=== PATIENT | male | born 1970 | race Caucasian/White ===

== ENCOUNTER 2024-02-20 11:48 | Inpatient (IN) | payer OTHER, SELFPAY ==
[2024-02-20] VITALS (22 sets, daily range): BP systolic 104–150; BP diastolic 67–88; PULSE 59–77; RESP 12–26; TEMP 36.6–36.9; O2SAT 93–100
--- NOTE | 2024-02-20 | ECHO_ITS ---
Patient Info Name: Miguel Cuadra Age: 53 years : 1970 Gender: Male Ht: 63 in Wt: 148 lbs BSA: 1.74 m2 HR: 77 bpm BP: 150 / 88 mmHg Heart Rhythm: Sinus Rhythm Technical Quality: Good Exam Date: 02/20/2024 1:45 PM Exam Location: Echo Lab Patient Status: Inpatient Admit Date: 02/20/2024 Staff Ordering Physician: Walter Baker MD (rafa/cecelia) Sap Bw Bi Developer: Sparkle Caceres RDCS Attending Provider: Walter Baker MD (rafa/cecelia) Referring Physician: Samuel FORREST; Exam Type: CA echo doppler color flow Study Info Complete two-dimensional, color flow and Doppler transthoracic echocardiogram is performed. Summary 1. Complete two-dimensional, color flow and Doppler transthoracic echocardiogram is performed. 2. Left ventricular chamber dimension is mildly enlarged. 3. Left ventricular systolic function is normal, estimated at 65-70%. 4. There is mildly increased left ventricular wall thickness. 5. The left ventricular diastolic function is grade I diastolic dysfunction. 6. The basal anterolateral wall, mid anterolateral wall, basal inferolateral wall, and mid inferolateral wall are hypokinetic. 7. There is mild mitral valve regurgitation. 8. There is mild tricuspid valve regurgitation. Left Ventricle Left ventricular chamber dimension is mildly enlarged. Left ventricular systolic function is normal, estimated at 65-70%. There is mildly increased left ventricular wall thickness. The left ventricular diastolic function is grade I diastolic dysfunction. The basal anterolateral wall, mid anterolateral wall, basal inferolateral wall, and mid inferolateral wall are hypokinetic. Right Ventricle Right ventricular chamber dimension is normal. Right ventricular systolic function is normal. Left Atria Left atrial chamber dimension is normal. Right Atria Right atrial chamber dimension is normal. Atrial Septum Intact interatrial septum visualized by color flow imaging. Aortic Valve The aortic valve is trileaflet. There is mild aortic valve sclerosis. There is no aortic valve stenosis. There is trace aortic valve regurgitation. Pulmonic Valve The pulmonic valve is normal. There is no pulmonic valve stenosis. There is trace pulmonic regurgitation. Mitral Valve The mitral valve has normal leaflets. There is no mitral valve stenosis. There is mild mitral valve regurgitation. Tricuspid Valve The tricuspid valve leaflets are normal. There is no significant tricuspid valve stenosis. There is mild tricuspid valve regurgitation. Pericardium/Pleural The pericardium appears normal. There is no pericardial effusion. Inferior Vena Cava Normal inferior vena cava with >50% collapse upon inspiration consistent with normal right atrial pressure, 5 mmHg. Aorta The aortic root size at the sinus of Valsalva is normal. Left Ventricular Outflow Tract Name Value Normal LVOT 2D LVOT Diameter 2.3 cm LVOT Doppler LVOT Peak Gradient 3 mmHg LVOT Mean Gradient 1 mmHg LVOT VTI 19 cm LVOT VTI/AV VTI Ratio 0.7 LVOT Stroke Volume 79 ml LVOT CO 4.5 l/min LVOT CI 2.6 l/min/m2 Pulmonic Valve Name Value Normal PV Doppler PV Peak Gradient 2 mmHg Mitral Valve Name Value Normal MV Doppler MV Peak Gradient 2 mmHg MV Mean Gradient [address] [place] 225 cm/s2 MV PHT 79 ms MV Area (PHT) 2.8 cm2 4.0-5.0 MV Area (Cont Eq VTI) 3.9 cm2 MV Regurgitation Doppler MR Peak Gradient 75 mmHg MV Diastolic Function MV E Peak Velocity 61 cm/s MV A Peak Velocity 90 cm/s MV E/A 0.7 MV Decel Time 273 ms MV Annular TDI MV E/e' (Septal) 6.1 <=8.0 MV E/e' (Lateral) 5.0 <=8.0 MV E/e' (Average) 5.6 Tricuspid Valve Name Value Normal TV Regurgitation Doppler TR Peak Velocity 360 cm/s TR Peak Gradient 52 mmHg Estimated PAP/RSVP RA Pressure 5 mmHg <=5 PA Systolic Pressure 57 mmHg <36 RV Systolic Pressure 57 mmHg <36 Aortic Valve Name Value Normal AV Doppler AV Peak Velocity 114 cm/s AV Peak Gradient 5 mmHg AV Mean Gradient 3 mmHg AV VTI 26 cm AV Area (Cont Eq VTI) 3.1 cm2 >=3.0 AV Area (Cont Eq Daryl) 2.9 cm2 AV Regurgitation 2D LVOT Area 4.2 cm2 Ventricles Name Value Normal LV Dimensions 2D/MM IVS Diastolic Thickness (2D) 0.7 cm 0.6-1.0 LVID Diastole (2D) 4.7 cm 4.2-5.8 LVIW Diastolic Thickness (2D) 0.8 cm 0.6-1.0 LVID Systole (2D) 3.2 cm 2.5-4.0 LVOT Diameter 2.3 cm LV Mass (2D Cubed) 120.71 g 88.00-224.00 LV Mass Index (2D Cubed) 69 g/m2 49-115 Relative Wall Thickness (2D) 0.35 LV Fractional Shortening/Ejection Fraction 2D/MM LV Fractional Shortening (2D) 29 % 25-43 LV EF (2D Teicholz) 56 % 52-72 LV Diastolic Volume (4C MOD) 110 ml LV EF (4C MOD) 61 % LV Diastolic Length (4C) 9.0 cm LV Systolic Length (4C) 7.3 cm LV Stroke Volume (4C MOD) 67 ml Atria Name Value Normal LA Dimensions LA Volume (4C A-L) 61 ml RA Dimensions RA Area (4C) 15.3 cm2 <=18.0 Wall Motion Scoring Report Signatures
--- NOTE | 2024-02-20 11:50 | ECG_ITS ---
Test Date: 2024-02-20 11:46:18 Measurements Intervals [place] Rate: 52 P: 37 VT: 119 QRS: 82 QRSD: 98 T: 81 QT: 441 QTc: 414 Interpretive Statements SINUS BRADYCARDIA WITH SHORT VT INTERVAL INCOMPLETE RIGHT BUNDLE BRANCH BLOCK [90+ ms QRS DURATION, TERMINAL R IN V1/V2, 40+ ms S IN I/aVL/V4/V5/V6] INFERIOR ST ELEVATION CONSISTENT WITH ACUTE INJURY PATTERN WITH POSTERIOR EXTENSION CRITICAL ECG No previous ECG available for comparison Electronically Signed On 02-21-2024 10:32:31 RADIOTELEGRAPH OPERATOR by Clifford Britt M.D.
[2024-02-20] MEDS: TICAGRELOR 90 MG TABLET 180 MG PO (11:58)
[2024-02-20] MEDS: HEPARIN SODIUM 5,000 UNITS/ML VIAL 4000 UNITS IV PUSH (12:01)
--- NOTE | 2024-02-20 12:05 | PC.NURSE ---
Stemi 1148-O/H 1149-Dr Baker 1150-Chey 1151-[facility]
--- NOTE | 2024-02-20 12:08 | ED.CHESTPAIN ---
HPI - Chest Pain General Chief Complaint: Chest Pain Stated Complaint: cp Time Seen by Provider: 02/20/24 11:54 History of Present Illness HPI narrative: Patient is a 53-year-old male who presents ER with chest pain. Began this morning. Left-sided. Reports his arms feel heavy. He was having pain in his right arm that is gone away but now he is having more left-sided pain. Pain worsened at work. EKG on arrival shows inferior STEMI. Related Data Home Medications ?Medication ?Instructions ?Recorded ?Confirmed ?Last Taken ?Type aspirin 325 mg capsule 325 mg PO DAILY 02/20/24 02/20/24 02/20/24 History chlordiazepoxide HCl 10 mg capsule 10 mg PO DAILY PRN anxiety 02/20/24 02/20/24 02/20/24 History lisinopril 20 mg tablet 20 mg PO DAILY 02/20/24 02/20/24 02/20/24 History Allergies Allergy/AdvReac Type Severity Reaction Status Date / Time Sulfa (Sulfonamide Allergy Mild Rash Verified 02/20/24 13:29 Antibiotics) Review of Systems Constitutional: Constitutional: Reports no additional constitutional complaints Cardiovascular: Cardiovascular: Reports no additional cardiovascular complaints Respiratory: Respiratory: Reports no additional respiratory complaints Gastrointestinal: Gastrointestinal: Reports no additional gastrointestinal complaints [facility] Past Medical History Medical History (Updated 02/20/24 @ 20:06 by Jaime Aguilar MD) Anxiety Tobacco dependence Hypertension Family History Family History (Updated 02/20/24 @ 14:14 by Deb Orellana RN) Father COPD (chronic obstructive pulmonary disease) Heart attack Mother Heart attack Social History Social History (Updated 02/20/24 @ 13:[address] MD) Social History: Drinks 1-2 drinks every day. Daily smoker Smoking packs per day: 1 Smoking cigarettes per day: 20.0 Years smoked: 40 Smoking pack-years: 40.00 Smoking status: Current every day smoker Smoking end date: 02/20/24 Alcohol intake: current Drinks per week: 7 Substance use: never Substance use type: does not use Do You Feel Safe in your Home?: Yes Lack of Transportation: No Lack of Food: Never True Current Housing: I Have Housing Concerned About Future Housing: No Difficulty Paying Gas/Electric Bills: No Difficulty Paying for Meds: No Currently Unemployed: No Education: Trade/Vocational Certificate Difficulty w/ Childcare or Family Care: No Spiritual care concerns: No Exam Narrative: GENERAL: Well-appearing, well-nourished, and in no acute distress. HEAD: Normocephalic, atraumatic. ENT: Mucous membranes moist. CHEST: Clear to auscultation. No respiratory distress. HEART: Regular rate and rhythm. Normal peripheral pulses. ABDOMEN: Soft, nontender, nondistended. EXTREMITIES: Normal range of motion. No edema. SKIN: Warm, dry, no rash. NEURO: Alert and oriented x3. PSYCH: Normal mood and affect. Course Course Emergency Course: STEMI activated, Cath team rapidly at bedside with plastic battery assembler. Patient received oral Brilinta, he had already taken aspirin at home. Heparin bolus given as well. Vital Signs Vital signs: Vital Signs Temperature 98 F 02/20/24 11:50 Pulse Rate 77 02/20/24 11:50 Respiratory Rate 16 02/20/24 11:50 Blood Pressure 150/88 H 02/20/24 11:50 Pulse Oximetry 100 02/20/24 11:50 Oxygen Delivery Room Air 02/20/24 11:50 Temperature 98.4 F 02/20/24 18:00 Pulse Rate 66 02/20/24 18:31 Respiratory Rate 18 02/20/24 18:31 Blood Pressure 106/71 02/20/24 18:31 Pulse Oximetry 93 02/20/24 18:31 Oxygen Delivery Room Air 02/20/24 12:00 MDM - Chest Pain Lab Data 02/20/24 12:03 02/20/24 12:03 ECG Data EKG #1: ECG completion date: 02/20/24 ECG completion time: 11:46 EKG Interpretation: bradycardia (52), sinus rhythm, ST elevation (II/III/aVF), normal QRS and normal QT Discharge Plan Discharge Clinical Impression: STEMI (ST elevation myocardial infarction) Patient Disposition: Still a Patient Condition: Stable
--- NOTE | 2024-02-20 12:09 | WPDMODSED ---
Moderate Sedation Note-Pt Data Patient Data Diagnosis: STEMI Present Complaint: STEMI Procedure to be performed/Plan: Primary PCI Allergies Allergy/AdvReac Type Severity Reaction Status Date / Time No Known Allergies Allergy Verified 02/20/24 11:57 Current Medications: Active Medications Heparin Sodium (Porcine) (Heparin Sodium 5,000 Units/Ml Vial) 4,000 units 60 units/kg (4000 units) IV PUSH ONCE ONE Stop: 02/20/24 12:01 Last Admin: 02/20/24 12:01 Dose: 4,000 units Ticagrelor (Ticagrelor 90 Mg Tablet) 180 mg PO ONCE ONE Stop: 02/20/24 11:55 Last Admin: 02/20/24 11:58 Dose: 180 mg Sedation/Anesthesia: No previous sedation/anesthesia problems (including family history). Mod Sed Physical Exam Physical Exam Pre Procedural Exam: Normal: Lungs, Heart Rate, Heart Rhythm, Neuro Exam, Extremities and Skin and Variation: Appearance (In no acute distress) Hours since solid foods: 0 Hours since liquid intake: 0 Mallampati Classification: class III Internal Medicine - PN: Obj Da Vital Signs Vital Signs: Vital Signs - 24 hr 02/20/24 11:50 02/20/24 12:00 Temperature 36.6 C Pulse Rate 77 Respiratory Rate 16 Blood Pressure 150/88 H Pulse Oximetry 100 100 Oxygen Delivery Room Air Room Air Meds/Results Medications: Active Medications Generic Name Dose Route Start Last Admin Trade Name Freq PRN Reason Stop Dose Admin Heparin Sodium (Porcine) 4,000 units 02/20/24 12:00 02/20/24 12:01 Heparin Sodium 5,000 Units/Ml Vial 60 units/kg (4000 units) 02/20/24 12:01 4,000 units IV PUSH Administration ONCE ONE Ticagrelor 180 mg 02/20/24 11:54 02/20/24 11:58 Ticagrelor 90 Mg Tablet PO 02/20/24 11:55 180 mg ONCE ONE Administration Labs 02/20/24 12:03 02/20/24 12:03 ASA Classification/Sedation ASA Classification/Sedation ASA Class: IV Emergent: Yes Risks: Risks, benefits and alternatives explained and patient/family accepted plan for sedation. Patient re-evaluated immediately prior to sedation.
[2024-02-20 12:10] LABS: Basophils Absolute Auto 0.1 K/mm3 (0.0-0.1); Basophils Percent Auto 0.5 % (0.2-1.2); Eosinophils Absolute Auto 0.1 K/mm3 (0-0.3); Eosinophils Percent Auto 0.7 % (0-4.4); Hematocrit 43.1 % (42.0-52.0); Hemoglobin 15.2 g/dL (14.0-18.0); Immature Granulocyte Absolute 0.04 K/mm3 (0.00-0.031); Immature Granulocyte Percent A 0.4 % (0-0.5); Lymphocytes Absolute Auto 1.26 K/mm3 (0.9-3.2); Lymphocytes Percent Auto 12.8 % (18.3-44.2); Mean Corpuscular HGB Conc 35.3 g/dl (32-36); Mean Corpuscular Hemoglobin 33.9 pg (26-34); Mean Corpuscular Volume 96.2 fl (80-100); Mean Platelet Volume 9.1 fl (7.4-10.4); Monocytes Absolute Auto 0.8 K/mm3 (0.1-0.6); Monocytes Percent Auto 8.2 % (2.6-8.5); Neutrophils Absolute Auto 7.6 K/mm3 (1.3-6.7); Neutrophils Percent Auto 77.4 % (45.5-73.1); Platelet Count Result 312 k/mm3 (150-375); Red Blood Count 4.48 M/mm3 (4.6-6.20); Red Cell Distribution Width 11.5 % (11.5-14.5); White Blood Count 9.9 K/mm3 (4.5-10.0)
--- NOTE | 2024-02-20 12:10 | PM.IMHP ---
H&P: HPI History of Present Illness Date/Time: 02/20/24 12:10 Chief Complaint: Chest pain Narrative: Miguel is a 53 year old male with hypertension and tobacco dependence who presented via EMS with chest pain. EKG shows ST elevations in the inferior leads with reciprocal ST depressions. STEMI team activated. Chest pain began around 8-8:30 AM. + Smoker. Smoking since age 12. Currently smoking <1/2 PPD, was smoking max 1-1.5PPD. Hemodynamically stable in the ED. Review of Systems Review of Systems: All systems reviewed & are unremarkable except as noted in HPI and below (HPI) [facility] Past Medical History Medical History (Updated 02/20/24 @ 13:[address] MD) Tobacco dependence Hypertension Meds Home Medications and Allergies Home Medications ?Medication ?Instructions ?Recorded ?Confirmed ?Type chlordiazepoxide HCl 10 mg capsule 10 mg PO DAILY PRN anxiety 02/20/24 02/20/24 History lisinopril 20 mg tablet 20 mg PO DAILY 02/20/24 02/20/24 History Allergies Allergy/AdvReac Type Severity Reaction Status Date / Time Sulfa (Sulfonamide Allergy Mild Rash Verified 02/20/24 13:29 Antibiotics) Vital Signs Vital Signs - 24 hr 02/20/24 11:50 02/20/24 12:00 Temperature 36.6 C Pulse Rate 77 Respiratory Rate 16 Blood Pressure 150/88 H Pulse Oximetry 100 100 Oxygen Delivery Room Air Room Air Exam Const: General: uncomfortable Eyes: General: appearance normal, both eyes and all related structures Sclera: sclerae normal Resp: Effort & Inspection: normal respiratory effort Cardio: Rate: regular rate Rhythm: regular rhythm Skin: General skin exam: normal color Neuro: Speech: normal speech Psych: Mental Status: mental status grossly normal Affect: normal affect Assessment and Plan Assessment and plan (1) STEMI (ST elevation myocardial infarction): Code(s): I21.3 - ST elevation (STEMI) myocardial infarction of unspecified site Status: Acute Assessment and Plan: Cardiac catheterization shows: 1. Acute 100% thrombotic occlusion of the mid LCX. S/p successful PCI with RAJESH x 1 in the mid-distal LCX. 2. The proximal to mid LAD has moderate disease. The first diagonal branch has ostial-proximal 90% stenosis. 3. OM1 has a 70-80% stenosis in the mid portion. 4. Elevated left ventricular end-diastolic pressure of 27mmHg. Continue ASA 81mg once daily indefinitely. Continue Brilinta 90mg BID for at least 1 year. Start high intensity statin. Echocardiogram ordered. 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 (2) Hypertension: Code(s): I10 - Essential (primary) hypertension Status: Acute Assessment and Plan: Takes Lisinopril at home, hold for now post cath, can resume if blood pressures able to tolerate. (3) Tobacco dependence: Code(s): F17.200 - Nicotine dependence, unspecified, uncomplicated Status: Acute Assessment and Plan: Counseled on smoking cessation. Plan Recommendations and plan discussed with ICU Physician.
[2024-02-20 12:21] LABS: Alanine Aminotransferase 19 U/L (6-50); Albumin Level 4.1 g/dL (3.5-5.1); Alkaline Phosphatase 115 U/L (38-126); Anion Gap 8 mmol/L (4-12); Aspartate Amino Transferase 26 U/L (17-59); Blood Urea Nitrogen 12 mg/dL (9-20); Carbon Dioxide 24 mmol/L (22-30); Chloride 101 mmol/L (98-107); Cholesterol 218 mg/dL (0-200); Estimated CRCL calculation 80 ml/min; Estimated Glomerular Filt Rate > 60; Glucose 100 mg/dL (65-110); HDL Direct 41 mg/dL; Sodium 133 mmol/L (137-145); Triglycerides 145 mg/dL (<150)
[2024-02-20 12:32] LABS: LDL Cholesterol Direct 144 mg/dL; Partial Thromboplastin Time 28.3 Seconds (22.3-36.8); Prothrombin Time 13.9 Seconds (11.1-14.7)
[2024-02-20 12:35] LABS: Hemoglobin A1C 5.3 % (<5.7)
[2024-02-20 12:37] LABS: Troponin I 0.065 ng/mL (0.000-0.034)
--- NOTE | 2024-02-20 13:20 | ADMGEN ---
This patient, Miguel Cuadra, was admitted to Intensive Care Unit-3. Patient/family oriented to hospital policies and general routines including ID bracelet, bed and alarms, visiting hours, pain management, procedures, bathroom and other care routines, personal items, smoking policy, room service/diet, and visiting hours. Information on how to activate the Rapid Response Team has been discussed. Patient/Family are encouraged to report perceived risks to care and to ask questions if they do not understand what they are told or what they should do.
--- NOTE | 2024-02-20 13:20 | WPDCARDPROC ---
Cardiac Cath Procedure Note Date of procedure:: 02/20/24 Performing physician:: CATHETERIZATION LABORATORY REPORT Procedure Date: 02/20/2024 Refractory Specialist: Walter Baker M.D., [facility]? Referring Physician: Jaime Aguilar M.D. ([facility]) Anesthesia: Versed and Fentanyl were ordered and given in my presence at 12:14, procedure ended at 13:00. Supervision of nurse monitored moderate sedation with Versed and Fentanyl was provided for 46 minutes. Total of Versed 1mg and Fentanyl 50mcg were administered by the Behavioral Science Chair RN En Machado. Pre-op Diagnosis: Inferior STEMI Post-op Diagnosis: 1. Acute 100% thrombotic occlusion of the mid LCX. S/p successful PCI with RAJESH x 1 in the mid-distal LCX. 2. The proximal to mid LAD has moderate disease. The first diagonal branch has ostial-proximal 90% stenosis. 3. OM1 has a 70-80% stenosis in the mid portion. 4. Elevated left ventricular end-diastolic pressure of 27mmHg. Procedure(s): 1. Moderate sedation 2. Ultrasound-guided access of the right radial artery 3. Coronary angiography 4. Left heart cath 5. IVUS of the LCX 6. PCI of the LCX with RAJESH x 1 in the mid-distal LCX. Access Site: Right radial artery Brief History and Clinical Indications: Patient is a 53 year old female with hypertension and tobacco dependence who is referred for emergent C for inferior STEMI. All risks, benefits and alternatives to left heart catheterization with or without percutaneous coronary intervention was discussed at length with the patient. Risk of complications including but not limited to bleeding, infection, arrhythmia, stroke, worsening kidney function, blood loss, groin hematoma, limb loss, emergency coronary artery bypass grafting, and even were discussed with the patient and all questions were answered. The patient understood and wished to proceed. Time out called, patient name, date of , medical record number, allergies, procedure performed, identify Refractory Specialist, patient and staff member concurred with accurate data, procedure carried on. Findings: LEFT HEART CATHETERIZATION FINDINGS: 1. Left main: The left main coronary artery is widely patent without any significant obstructive disease. 2. Left anterior descending: The proximal to mid LAD has moderate disease. There is mild disease in the mid-distal portion. The first diagonal branch has ostial-proximal 90% stenosis. 3. Left circumflex: The left circumflex is a co-dominant vessel. The LCX is 100% occluded in the mid portion. OM1 has a 70-80% stenosis in the mid portion at the level of a bifurcation of a branch. 4. Right coronary artery: The RCA is a co-dominant vessel. The RCA has diffuse mild disease. The distal RCA just prior to the bifurcation has a 40-50% stenosis. No significant obstructive angiographic disease. 5. Left ventricle: A. End-diastolic pressure 27 mmHg. B. LV gram deferred. C. No significant gradient across aortic valve on catheter pullback. Description of Procedure and PCI: Informed consent signed and placed in the chart. Patient transferred to label printing machinist room. Prepped and draped in usual sterile fashion. 2% lidocaine injected subcutaneously in right wrist area. 22-gauge venipuncture catheter used to access the right radial artery under ultrasound guidance. 6-FR slender sheath placed in right radial artery. Nitroglycerine and Verapamil were given intraarterial through the sheath. Versacore wire advanced under fluoroscopy 5F Tig 4 diagnostic catheter engaged Left Main Coronary Artery. 5F Tig 4 diagnostic catheter engaged Right Coronary Artery Multiple orthogonal angiogram obtained and reviewed Angiomax was used for anticoagulation. 6F CLS 3.0 guide catheter was used to intubate the left main. 0.014 [place] coronary wire was passed in to the distal LCX. The lesion was pre-dilated with a 2.5 mm x 15 mm balloon inflated to high CHERRIE. Multiple balloon inflations were done. IVUS catheter advanced distal to the lesion and reference measurements obtained. A 2.75 mm x 26 mm Orsiro RAJESH was successfully deployed into mid-distal LCX. Intracoronary NTG was administered Pre-procedure - MONI 0 flow Post-procedure - MONI 3 flow No angiographic complications identified. 5F Pigtail diagnostic catheter crossed aortic valve to obtain LVEDP, LV angiogram deferred. Hemostasis was achieved by application of TR band. Disposition: ICU Plan: The patient will be admitted to the ICU. Continue ASA 81mg once daily indefinitely. Continue Brilinta 90mg BID for at least 1 year. Start high intensity statin. Echocardiogram ordered. 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 Continue aggressive medical therapy and risk factor modification. ? Walter Baker M.D. Interventional Cardiology
--- NOTE | 2024-02-20 13:39 | P.CONIN_ITS ---
Assessment and Plan Assessment and plan (1) STEMI (ST elevation myocardial infarction): Code(s): I21.3 - ST elevation (STEMI) myocardial infarction of unspecified site Status: Acute Assessment and Plan: Inferior STEMI status post PCI and stent insertion and left circumflex Aspirin Brilinta and statin Check echo ICU media monitor Start beta-rafael and GHAZALA-inhibitor (2) Hypertension: Code(s): I10 - Essential (primary) hypertension Status: Acute Assessment and Plan: Will start lisinopril and beta-rafael (3) Tobacco dependence: Code(s): F17.200 - Nicotine dependence, unspecified, uncomplicated Status: Acute Assessment and Plan: Patient was counseled and encouraged to quit smoking Plan DVT prophylaxis -Lovenox Code Status - Full Code Total Critical Care Time - 35 minutes Due to a high probability of clinically significant, life threatening deterioration, the patient required my highest level of preparedness to intervene emergently and I personally spent this critical care time directly and personally managing the patient. This critical care time included obtaining a history; examining the patient; pulse oximetry; ordering and review of studies; arranging urgent treatment with development of a management plan; evaluation of patient's response to treatment; frequent reassessment; and discussions with other providers. It was exclusive of separately billable procedures and treating other patients and teaching time. 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 Chest pain started around 8:00 a.m. and he was ready to go to work. Pain started in the elbows and went to center of his chest with no further radiation. He qualifies pain as sore in quality started fired 10 severe and increased to 8/10 in severity. Pain was associated with shortness of breath but no nausea vomiting or sweating. He had no cough or shortness of breath prior to this and was at his baseline yesterday. All other systems were reviewed and were negative In ER patient was diagnosed inferior STEMI and was taken to cardiac catheterization lab where he underwent PCI of left circumflex. Patient is now admitted to ICU for further evaluation management he states that his chest pain has resolved and he denies any other complaints at this time. Review of Systems 2 Review of Systems: All systems reviewed & are unremarkable except as noted in HPI and below (HPI) [facility] Past Medical History Medical History (Updated 02/20/24 @ 13:[address] MD) Anxiety Tobacco dependence Hypertension Social History Social History (Updated 02/20/24 @ 13:[address] MD) Social History: Drinks 1-2 drinks every day. Daily smoker Smoking packs per day: 1 Smoking cigarettes per day: 20.0 Years smoked: 40 Smoking pack-years: 40.00 Smoking status: Current every day smoker Smoking end date: 02/20/24 Alcohol intake: current Drinks per week: 7 Substance use: never Substance use type: does not use Do You Feel Safe in your Home?: Yes Lack of Transportation: No Lack of Food: Never True Current Housing: I Have Housing Concerned About Future Housing: No Difficulty Paying Gas/Electric Bills: No Difficulty Paying for Meds: No Currently Unemployed: No Education: Trade/Vocational Certificate Difficulty w/ Childcare or Family Care: No Spiritual care concerns: No Meds Home Medications and Allergies Home Medications ?Medication ?Instructions ?Recorded ?Confirmed ?Type aspirin 325 mg capsule 325 mg PO DAILY 02/20/24 02/20/24 History chlordiazepoxide HCl 10 mg capsule 10 mg PO DAILY PRN anxiety 02/20/24 02/20/24 History lisinopril 20 mg tablet 20 mg PO DAILY 02/20/24 02/20/24 History Allergies Allergy/AdvReac Type Severity Reaction Status Date / Time Sulfa (Sulfonamide Allergy Mild Rash Verified 02/20/24 13:29 Antibiotics) Vital Signs Vital Signs - 24 hr 02/20/24 11:50 02/20/24 12:00 Temperature 36.6 C Pulse Rate 77 Respiratory Rate 16 Blood Pressure 150/88 H Pulse Oximetry 100 100 Oxygen Delivery Room Air Room Air Exam 2 Narrative: General: Pt is alert awake and in NAD Lungs/Chest: Trachea central Clear BS B/L, No crackles or wheezing. Cardiac: RRR. Normal S1 S2. No murmurs Circulation: Pedal pulses are intact and symmetrical. Abdomen: Normal bowel sounds.. Soft. NT. ND. Extremities: No clubbing, cyanosis or edema. Warm TR band on right wrist. Both hands are warm. 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 Moves all 4 extremities PERRL AO x3 Skin: No Rash Results Labs 02/20/24 12:03 02/20/24 12:03 Labs: Short CBC 02/20/24 Range/Units 12:03 WBC 9.9 (4.5-10.0) K/mm3 Hgb 15.2 (14.0-18.0) g/dL Hct 43.1 (42.0-52.0) % Plt Count 312 (150-375) k/mm3 BMP 02/20/24 12:03 Sodium 133 L Potassium 4.0 Chloride 101 Carbon Dioxide 24 BUN 12 Creatinine 0.75 Glucose 100 Calcium 9.0 Cardiac Enzymes 02/20/24 Range/Units 12:03 Troponin I 0.065 H* (0.000-0.034) ng/mL Liver Function 02/20/24 Range/Units 12:03 Total Bilirubin 1.0 (0.2-1.3) mg/dL AST 26 (17-59) U/L ALT 19 (6-50) U/L Alkaline Phosphatase 115 (38-126) U/L Albumin 4.1 (3.5-5.1) g/dL
--- NOTE | 2024-02-20 14:16 | PC.NURSE ---
Patient and spouse have not made decision on meds to beds program. Information given to them on program.
[2024-02-20] MEDS: ATORVASTATIN 40 MG TABLET 80 MG PO (14:56)
[2024-02-20] MEDS: SODIUM CHLORIDE 0.9% IV 1,000 ML 125 ML IV CONT (14:56)
[2024-02-20 15:04] LABS: MRSA (PCR) NOT DETECTED (NOT DETECTE)
[2024-02-20] MEDS: TICAGRELOR 90 MG TABLET PO (23:01)
[2024-02-21] VITALS (14 sets, daily range): BP systolic 99–128; BP diastolic 60–91; PULSE 62–78; RESP 13–24; TEMP 36.6–37; O2SAT 94–97
[2024-02-21 03:52] LABS: Hematocrit 42.5 % (42.0-52.0); Hemoglobin 14.6 g/dL (14.0-18.0); Mean Corpuscular HGB Conc 34.4 g/dl (32-36); Mean Corpuscular Hemoglobin 33.3 pg (26-34); Mean Platelet Volume 9.1 fl (7.4-10.4); Platelet Count Result 270 k/mm3 (150-375); Red Blood Count 4.38 M/mm3 (4.6-6.20); Red Cell Distribution Width 11.5 % (11.5-14.5); White Blood Count 10.5 K/mm3 (4.5-10.0)
[2024-02-21 04:08] LABS: Alanine Aminotransferase 23 U/L (6-50); Albumin Level 3.3 g/dL (3.5-5.1); Alkaline Phosphatase 92 U/L (38-126); Anion Gap 4 mmol/L (4-12); Aspartate Amino Transferase 87 U/L (17-59); Bilirubin,Total 1.1 mg/dL (0.2-1.3); Blood Urea Nitrogen 9 mg/dL (9-20); Calcium 8.2 mg/dL (8.4-10.2); Carbon Dioxide 22 mmol/L (22-30); Chloride 107 mmol/L (98-107); Estimated CRCL calculation 108 ml/min; Estimated Glomerular Filt Rate > 60; Glucose 96 mg/dL (65-110); Magnesium 2.1 mg/dL (1.6-2.3); Sodium 133 mmol/L (137-145)
--- NOTE | 2024-02-21 08:33 | P.PNINT_ITS ---
Progress Note: A&P Assessment and Plan (1) STEMI (ST elevation myocardial infarction): Code(s): I21.3 - ST elevation (STEMI) myocardial infarction of unspecified site Status: Acute Assessment and Plan: Inferior STEMI status post PCI and stent insertion and left circumflex Aspirin Brilinta and statin Echo pending Continue telemetry monitoring Continue beta-rafael and GHAZALA-inhibitor (2) Hypertension: Code(s): I10 - Essential (primary) hypertension Status: Acute Assessment and Plan: Contain lisinopril and beta-rafael (3) Tobacco dependence: Code(s): F17.200 - Nicotine dependence, unspecified, uncomplicated Status: Acute Assessment and Plan: Patient was counseled and encouraged to quit smoking (4) Nonsustained ventricular tachycardia: Code(s): I47.29 - Other ventricular tachycardia Status: Acute Assessment and Plan: Continue beta-rafael Echo pending Further management by Cardiology (5) Anxiety: Code(s): F41.9 - Anxiety disorder, unspecified Status: Acute Assessment and Plan: Continue home p.r.n. Librium that patient has been on for many years Plan DVT prophylaxis -Lovenox Code Status - Full Code Up ad nohelia Transfer out of ICU today Subjective Date/time seen: 02/21/24 Patient states he is doing better and denies any new complaints. His chest pain has resolved. He denies any shortness a breath nausea vomiting fever cough abdominal pain. He does have back pain from laying in bed. All other systems were reviewed and were negative Telemetry shows intermittent nonsustained V-tach episodes. Blood pressure is adequate. He has tolerated cord diet and urine output is adequate. She is afebrile Review of Systems Review of Systems: All systems reviewed & are unremarkable except as noted in HPI and below (HPI) Exam Narrative: General: Pt is alert awake and in NAD Lungs/Chest: Trachea central Clear BS B/L, No crackles or wheezing. Cardiac: RRR. Normal S1 S2. No murmurs Circulation: Pedal pulses are intact and symmetrical. Abdomen: Normal bowel sounds.. Soft. NT. ND. Extremities: No clubbing, cyanosis or edema. Warm radial pulse present Both hands are warm. 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 Moves all 4 extremities PERRL AO x3 Skin: No Rash Objective Data Vital Signs Vital Signs: Vital Signs - 24 hr 02/20/24 11:50 02/20/24 12:00 02/20/24 13:53 Temperature 36.6 C Pulse Rate 77 69 Respiratory Rate 16 16 Blood Pressure 150/88 H 109/75 Pulse Oximetry 100 100 98 Oxygen Delivery Room Air Room Air 02/20/24 14:00 02/20/24 14:00 02/20/24 14:15 Temperature Pulse Rate 64 70 59 L Respiratory Rate 20 16 Blood Pressure 123/79 120/76 Pulse Oximetry 98 99 Oxygen Delivery 02/20/24 14:30 02/20/24 14:45 02/20/24 15:15 Temperature Pulse Rate 61 64 63 Respiratory Rate 26 H 14 25 H Blood Pressure 113/77 126/79 120/75 Pulse Oximetry 97 98 98 Oxygen Delivery 02/20/24 15:45 02/20/24 15:51 02/20/24 16:00 Temperature Pulse Rate 61 59 L 72 Respiratory Rate 12 16 Blood Pressure 130/73 122/77 Pulse Oximetry 99 97 Oxygen Delivery 02/20/24 16:19 02/20/24 16:31 02/20/24 16:45 Temperature Pulse Rate 70 75 69 Respiratory Rate 18 18 19 Blood Pressure 118/80 125/81 125/81 Pulse Oximetry 99 99 100 Oxygen Delivery 02/20/24 16:50 02/20/24 17:00 02/20/24 17:31 Temperature 36.9 C Pulse Rate 75 75 77 Respiratory Rate 18 19 18 Blood Pressure 125/81 115/78 116/71 Pulse Oximetry 99 96 96 Oxygen Delivery 02/20/24 18:00 02/20/24 18:00 02/20/24 18:17 Temperature 36.9 C Pulse Rate 63 65 65 Respiratory Rate 18 18 Blood Pressure 110/67 104/70 Pulse Oximetry 93 94 Oxygen Delivery 02/20/24 18:31 02/20/24 20:00 02/20/24 20:00 Temperature 36.7 C Pulse Rate 66 64 Respiratory Rate 18 20 Blood Pressure 106/71 113/74 Pulse Oximetry 93 93 Oxygen Delivery Room Air 02/20/24 20:00 02/20/24 22:00 02/20/24 22:00 Temperature Pulse Rate 64 62 62 Respiratory Rate 19 Blood Pressure 110/71 Pulse Oximetry 93 Oxygen Delivery 02/21/24 00:00 02/21/24 00:00 02/21/24 00:00 Temperature 36.6 C Pulse Rate 62 62 Respiratory Rate 21 H Blood Pressure 112/78 Pulse Oximetry 94 Oxygen Delivery Room Air 02/21/24 02:00 02/21/24 02:00 02/21/24 04:00 Temperature Pulse Rate 65 65 Respiratory Rate 20 Blood Pressure 99/60 L Pulse Oximetry 94 Oxygen Delivery Room Air 02/21/24 04:00 02/21/24 04:00 02/21/24 06:00 Temperature 36.8 C Pulse Rate 75 75 73 Respiratory Rate 17 Blood Pressure 123/83 Pulse Oximetry 97 Oxygen Delivery 02/21/24 06:00 02/21/24 08:00 Temperature 36.8 C Pulse Rate 73 71 Respiratory Rate 19 24 H Blood Pressure 113/77 123/80 Pulse Oximetry 94 94 Oxygen Delivery Intake/Output Intake/Output: Intake & Output 02/18/24 02/19/24 02/20/24 02/21/24 23:59 23:59 23:59 23:59 Intake Total 1290 300 Output Total 1100 1175 Balance 190 -875 Meds/Results Medications: Active Medications Generic Name Dose Route Start Last Admin Trade Name Freq PRN Reason Stop Dose Admin Aspirin 81 mg 02/21/24 09:00 Aspirin 81 Mg Enteric Tablet PO QAM [facility] Atorvastatin Calcium 80 mg 02/20/24 13:15 02/20/24 14:56 Atorvastatin 40 Mg Tablet PO 80 mg DAILY [facility] Administration Chlordiazepoxide HCl 10 mg 02/21/24 08:02 Chlordiazepoxide (*Crx) 10 Mg Capsule PO DAILY PRN Anxiety Enoxaparin Sodium 40 mg 02/21/24 09:00 Enoxaparin 40 Mg/0.4 Ml Syringe SUB-Q DAILY [facility] Lisinopril 10 mg 02/21/24 09:00 Lisinopril 10 Mg Tablet PO QAM [facility] Metoprolol Tartrate 12.5 mg 02/20/24 21:00 02/20/24 20:16 Metoprolol Tartrate 12.5 Mg Tablet PO Not Given Q12HR [facility] Perflutren Lipid Microsphere 0 ml 02/20/24 13:13 Perflutren Lipid Microspheres 1.5 Ml Vial Diluted To 10 Ml Total Volume IV PUSH 02/23/24 13:13 ONCE PRN adequate visualization Protocol Ticagrelor 90 mg 02/20/24 23:00 02/20/24 23:01 Ticagrelor 90 Mg Tablet PO 90 mg Q12HR NINFA Administration Labs Labs: Laboratory Results - last 24 hr 02/20/24 02/20/24 02/20/24 12:03 13:47 14:53 WBC 9.9 RBC 4.48 L Hgb 15.2 Hct 43.1 MCV 96.2 MCH 33.9 MCHC 35.3 RDW 11.5 Plt Count 312 MPV 9.1 Immature Gran % (Auto) 0.4 Neut % (Auto) 77.4 H Lymph % (Auto) 12.8 L [place] % (Auto) 8.2 Eos % (Auto) 0.7 Baso % (Auto) 0.5 Lymph # (Auto) 1.26 [place] # (Auto) 0.8 H Eos # (Auto) 0.1 Baso # (Auto) 0.1 Abs Immat Gran (auto) 0.04 H Absolute Neuts (auto) 7.6 H Absolute Nucleated RBC 0.000 Nucleated RBC % 0.0 PT 13.9 INR 1.0 APTT 28.3 Sodium 133 L Potassium 4.0 Chloride 101 Carbon Dioxide 24 Anion Gap 8 BUN 12 Creatinine 0.75 Estim Creat Clear Calc 80 Estimated GFR > 60 Glucose 100 Hemoglobin A1c 5.3 Calcium 9.0 Magnesium Total Bilirubin 1.0 AST 26 ALT 19 Alkaline Phosphatase 115 Troponin I 0.065 H* 2.790 H* D Total Protein 7.0 Albumin 4.1 Triglycerides 145 Cholesterol 218 H LDL Cholesterol Direct 144 HDL Direct 41 Nasal MRSA (PCR) Not detected Blood Type B Positive Antibody Screen Negative 02/20/24 02/21/24 18:13 03:43 WBC 10.5 H RBC 4.38 L Hgb 14.6 Hct 42.5 MCV 97.0 MCH 33.3 MCHC 34.4 RDW 11.5 Plt Count 270 MPV 9.1 Immature Gran % (Auto) Neut % (Auto) Lymph % (Auto) [place] % (Auto) Eos % (Auto) Baso % (Auto) Lymph # (Auto) [place] # (Auto) Eos # (Auto) Baso # (Auto) Abs Immat Gran (auto) Absolute Neuts (auto) Absolute Nucleated RBC Nucleated RBC % PT INR APTT Sodium 133 L Potassium 4.0 Chloride 107 Carbon Dioxide 22 Anion Gap 4 BUN 9 Creatinine 0.68 L Estim Creat Clear Calc 108 Estimated GFR > 60 Glucose 96 Hemoglobin A1c Calcium 8.2 L Magnesium 2.1 Total Bilirubin 1.1 AST 87 H ALT 23 Alkaline Phosphatase 92 Troponin I 11.800 H* D Total Protein 6.0 L Albumin 3.3 L Triglycerides Cholesterol LDL Cholesterol Direct HDL Direct Nasal MRSA (PCR) Blood Type Antibody Screen
[2024-02-21] MEDS: TICAGRELOR 90 MG TABLET PO ×2 (09:09→21:00)
[2024-02-21] MEDS: lisinopriL 10 MG TABLET PO (09:09)
[2024-02-21] MEDS: ASPIRIN 81 MG ENTERIC TABLET PO (09:10)
[2024-02-21] MEDS: METOPROLOL TARTRATE 12.5 MG TABLET PO ×2 (12:21→21:00)
[2024-02-21] MEDS: ATORVASTATIN 40 MG TABLET 80 MG PO (12:21)
--- NOTE | 2024-02-21 12:58 | PM.PNCARD ---
Progress Note: A&P Assessment and Plan (1) Hypertension: Code(s): I10 - Essential (primary) hypertension Status: Acute Assessment and Plan: At goal. Continue metoprolol and lisinopril (2) Nonsustained ventricular tachycardia: Code(s): I47.29 - Other ventricular tachycardia Status: Acute Assessment and Plan: Continue metoprolol. Would check a magnesium and a basic metabolic panel morning (3) STEMI (ST elevation myocardial infarction): Code(s): I21.3 - ST elevation (STEMI) myocardial infarction of unspecified site Status: Acute Assessment and Plan: Continue aspirin, Brilinta, metoprolol, lisinopril and statin (4) Tobacco dependence: Code(s): F17.200 - Nicotine dependence, unspecified, uncomplicated Status: Acute Assessment and Plan: Tobacco abuse counseling performed (5) Hyperlipidemia: Code(s): E78.5 - Hyperlipidemia, unspecified Status: Acute Assessment and Plan: He possibly has a statin allergy. thinks he may have rhabdo in the past. He states that this was years and years ago however. They want to restart a statin. Warned against and concern of future rhabdo with statin use but given the uncertainty of the previous diagnosis, the would like to try statin for for Repatha. Will start rosuvastatin 10 mg daily and discontinue atorvastatin as this is the medication he had issues with in the past. Obviously if he develops any significant muscle aches weakness then he should stop the medication immediately Subjective Date/time seen: 02/21/24 12:58 Interval history: 53-year-old admitted for chest pain. Status post cardiac catheterization1. Acute 100% thrombotic occlusion of the mid LCX. S/p successful PCI with RAJESH x 1 in the mid-distal LCX. 2. The proximal to mid LAD has moderate disease. The first diagonal branch has ostial-proximal 90% stenosis. 3. OM1 has a 70-80% stenosis in the mid portion. 4. Elevated left ventricular end-diastolic pressure of 27mmHg. Date of service 02/21/2024: No chest pain or shortness of breath. Feels well today. Review of Systems Cardiovascular: Comments: No chest pain Respiratory: Comments: No shortness breath Exam Narrative: Alert oriented Const: General: comfortable HENMT: Ears: TM's normal bilaterally Eyes: General: appearance normal, both eyes and all related structures Sclera: sclerae normal Neck: Neck: supple and no JVD Resp: Effort & Inspection: normal respiratory effort Auscultation: clear to auscultation bilaterally Cardio: Rate: regular rate Rhythm: regular rhythm GI: Inspection: non-distended GI Palp: Yes Soft to palpation Skin: General skin exam: normal color Neuro: Speech: normal speech Extrem: General: normal to inspection Psych: Mental Status: mental status grossly normal Objective Data Vital Signs Vital Signs: Vital Signs - 24 hr 02/20/24 13:53 02/20/24 14:00 02/20/24 14:00 Temperature Pulse Rate 69 64 70 Respiratory Rate 16 20 Blood Pressure 109/75 123/79 Pulse Oximetry 98 98 Oxygen Delivery 02/20/24 14:15 02/20/24 14:30 02/20/24 14:45 Temperature Pulse Rate 59 L 61 64 Respiratory Rate 16 26 H 14 Blood Pressure 120/76 113/77 126/79 Pulse Oximetry 99 97 98 Oxygen Delivery 02/20/24 15:15 02/20/24 15:45 02/20/24 15:51 Temperature Pulse Rate 63 61 59 L Respiratory Rate 25 H 12 16 Blood Pressure 120/75 130/73 122/77 Pulse Oximetry 98 99 97 Oxygen Delivery 02/20/24 16:00 02/20/24 16:19 02/20/24 16:31 Temperature Pulse Rate 72 70 75 Respiratory Rate 18 18 Blood Pressure 118/80 125/81 Pulse Oximetry 99 99 Oxygen Delivery 02/20/24 16:45 02/20/24 16:50 02/20/24 17:00 Temperature 36.9 C Pulse Rate 69 75 75 Respiratory Rate 19 18 19 Blood Pressure 125/81 125/81 115/78 Pulse Oximetry 100 99 96 Oxygen Delivery 02/20/24 17:31 02/20/24 18:00 02/20/24 18:00 Temperature 36.9 C Pulse Rate 77 63 65 Respiratory Rate 18 18 Blood Pressure 116/71 110/67 Pulse Oximetry 96 93 Oxygen Delivery 02/20/24 18:17 02/20/24 18:31 02/20/24 20:00 Temperature 36.7 C Pulse Rate 65 66 64 Respiratory Rate 18 18 20 Blood Pressure 104/70 106/71 113/74 Pulse Oximetry 94 93 93 Oxygen Delivery 02/20/24 20:00 02/20/24 20:00 02/20/24 22:00 Temperature Pulse Rate 64 62 Respiratory Rate Blood Pressure Pulse Oximetry Oxygen Delivery Room Air 02/20/24 22:00 02/21/24 00:00 02/21/24 00:00 Temperature Pulse Rate 62 62 Respiratory Rate 19 Blood Pressure 110/71 Pulse Oximetry 93 Oxygen Delivery Room Air 02/21/24 00:00 02/21/24 02:00 02/21/24 02:00 Temperature 36.6 C Pulse Rate 62 65 65 Respiratory Rate 21 H 20 Blood Pressure 112/78 99/60 L Pulse Oximetry 94 94 Oxygen Delivery 02/21/24 04:00 02/21/24 04:00 02/21/24 04:00 Temperature 36.8 C Pulse Rate 75 75 Respiratory Rate 17 Blood Pressure 123/83 Pulse Oximetry 97 Oxygen Delivery Room Air 02/21/24 06:00 02/21/24 06:00 02/21/24 08:00 Temperature 36.8 C Pulse Rate 73 73 71 Respiratory Rate 19 24 H Blood Pressure 113/77 123/80 Pulse Oximetry 94 94 Oxygen Delivery 02/21/24 08:00 02/21/24 10:00 02/21/24 10:00 Temperature Pulse Rate 65 72 72 Respiratory Rate 21 H Blood Pressure 115/82 Pulse Oximetry 95 Oxygen Delivery 02/21/24 12:00 02/21/24 12:21 Temperature Pulse Rate 68 73 Respiratory Rate Blood Pressure Pulse Oximetry Oxygen Delivery Intake/Output Intake/Output: Intake & Output 02/18/24 02/19/24 02/20/24 02/21/24 23:59 23:59 23:59 23:59 Intake Total 1290 780 Output Total 1100 1175 Balance 190 -395 Meds/Results Medications: Active Medications Generic Name Dose Route Start Last Admin Trade Name Freq PRN Reason Stop Dose Admin Aspirin 81 mg 02/21/24 09:00 02/21/24 09:10 Aspirin 81 Mg Enteric Tablet PO 81 mg QAM NINFA Administration Atorvastatin Calcium 80 mg 02/20/24 13:15 02/21/24 12:21 Atorvastatin 40 Mg Tablet PO 80 mg DAILY NINFA Administration Chlordiazepoxide HCl 10 mg 02/21/24 08:02 Chlordiazepoxide (*Crx) 10 Mg Capsule PO DAILY PRN Anxiety Enoxaparin Sodium 40 mg 02/21/24 09:00 02/21/24 08:36 Enoxaparin 40 Mg/0.4 Ml Syringe SUB-Q Not Given DAILY [facility] Lisinopril 10 mg 02/21/24 09:00 02/21/24 09:09 Lisinopril 10 Mg Tablet PO 10 mg QAM NINFA Administration Metoprolol Tartrate 12.5 mg 02/20/24 21:00 02/21/24 12:21 Metoprolol Tartrate 12.5 Mg Tablet PO 12.5 mg Q12HR NINFA Administration Ticagrelor 90 mg 02/20/24 23:00 02/21/24 09:09 Ticagrelor 90 Mg Tablet PO 90 mg Q12HR NINFA Administration Labs Labs: Laboratory Results - last 24 hr 02/20/24 02/20/24 02/20/24 12:03 13:47 14:53 WBC RBC Hgb Hct MCV MCH MCHC RDW Plt Count MPV Sodium Potassium Chloride Carbon Dioxide Anion Gap BUN Creatinine Estim Creat Clear Calc Estimated GFR Glucose Calcium Magnesium Total Bilirubin AST ALT Alkaline Phosphatase Troponin I 2.790 H* D Total Protein Albumin Nasal MRSA (PCR) Not detected Antibody Screen Negative 02/20/24 02/21/24 18:13 03:43 WBC 10.5 H RBC 4.38 L Hgb 14.6 Hct 42.5 MCV 97.0 MCH 33.3 MCHC 34.4 RDW 11.5 Plt Count 270 MPV 9.1 Sodium 133 L Potassium 4.0 Chloride 107 Carbon Dioxide 22 Anion Gap 4 BUN 9 Creatinine 0.68 L Estim Creat Clear Calc 108 Estimated GFR > 60 Glucose 96 Calcium 8.2 L Magnesium 2.1 Total Bilirubin 1.1 AST 87 H ALT 23 Alkaline Phosphatase 92 Troponin I 11.800 H* D Total Protein 6.0 L Albumin 3.3 L Nasal MRSA (PCR) Antibody Screen
[2024-02-22] VITALS (18 sets, daily range): BP systolic 123–141; BP diastolic 69–98; PULSE 55–95; RESP 14–20; TEMP 36.4–36.9; O2SAT 94–100
[2024-02-22 03:59] LABS: Hematocrit 41.5 % (42.0-52.0); Hemoglobin 14.4 g/dL (14.0-18.0); Mean Corpuscular HGB Conc 34.7 g/dl (32-36); Mean Corpuscular Hemoglobin 33.6 pg (26-34); Mean Corpuscular Volume 96.7 fl (80-100); Platelet Count Result 273 k/mm3 (150-375); Red Blood Count 4.29 M/mm3 (4.6-6.20); Red Cell Distribution Width 11.6 % (11.5-14.5); White Blood Count 7.1 K/mm3 (4.5-10.0)
[2024-02-22 04:09] LABS: Alanine Aminotransferase 21 U/L (6-50); Albumin Level 3.4 g/dL (3.5-5.1); Alkaline Phosphatase 94 U/L (38-126); Anion Gap 3 mmol/L (4-12); Aspartate Amino Transferase 50 U/L (17-59); Bilirubin,Total 0.8 mg/dL (0.2-1.3); Blood Urea Nitrogen 8 mg/dL (9-20); Calcium 8.5 mg/dL (8.4-10.2); Carbon Dioxide 25 mmol/L (22-30); Chloride 107 mmol/L (98-107); Estimated CRCL calculation 100 ml/min; Estimated Glomerular Filt Rate > 60; Glucose 94 mg/dL (65-110); Sodium 135 mmol/L (137-145)
[2024-02-22] MEDS: lisinopriL 10 MG TABLET PO (08:56)
[2024-02-22] MEDS: ROSUVASTATIN 10 MG TABLET PO (08:56)
[2024-02-22] MEDS: METOPROLOL TARTRATE 12.5 MG TABLET PO ×2 (08:56→20:04)
[2024-02-22] MEDS: TICAGRELOR 90 MG TABLET PO ×2 (08:56→20:04)
[2024-02-22] MEDS: ASPIRIN 81 MG ENTERIC TABLET PO (08:57)
--- NOTE | 2024-02-22 10:23 | PM.PNCARD ---
Progress Note: A&P Assessment and Plan (1) Hypertension: Code(s): I10 - Essential (primary) hypertension Status: Acute Assessment and Plan: At goal. Continue metoprolol and lisinopril (2) Nonsustained ventricular tachycardia: Code(s): I47.29 - Other ventricular tachycardia Status: Acute Assessment and Plan: Continue metoprolol. Potassium and magnesium today are normal. Potassium 4 and magnesium is 2. Telemetry times 24 more hours and if no further significant ectopy while on metoprolol, DC home tomorrow a.m. (3) STEMI (ST elevation myocardial infarction): Code(s): I21.3 - ST elevation (STEMI) myocardial infarction of unspecified site Status: Acute Assessment and Plan: Continue aspirin, Brilinta, metoprolol, lisinopril and statin (4) Tobacco dependence: Code(s): F17.200 - Nicotine dependence, unspecified, uncomplicated Status: Acute Assessment and Plan: Tobacco abuse counseling performed (5) Hyperlipidemia: Code(s): E78.5 - Hyperlipidemia, unspecified Status: Acute Assessment and Plan: He possibly has a statin allergy. thinks he may have rhabdo in the past. He states that this was years and years ago however. They want to restart a statin. Warned against and concern of future rhabdo with statin use but given the uncertainty of the previous diagnosis, the would like to try statin for for Repatha. Continue rosuvastatin 10 mg daily. Obviously if he develops any significant muscle aches weakness then he should stop the medication immediately Subjective Date/time seen: 02/22/24 10:23 Interval history: 53-year-old admitted for chest pain. Status post cardiac catheterization1. Acute 100% thrombotic occlusion of the mid LCX. S/p successful PCI with RAJESH x 1 in the mid-distal LCX. 2. The proximal to mid LAD has moderate disease. The first diagonal branch has ostial-proximal 90% stenosis. 3. OM1 has a 70-80% stenosis in the mid portion. 4. Elevated left ventricular end-diastolic pressure of 27mmHg. Date of service 02/21/2024: No chest pain or shortness of breath. Feels well today. Date of service 02/22/2024: Much less ventricular ectopy with metoprolol on board. No chest pain or shortness of breath Review of Systems Cardiovascular: Comments: No chest pain Respiratory: Comments: No shortness breath Exam Narrative: Alert oriented Const: General: comfortable HENMT: Ears: TM's normal bilaterally Eyes: General: appearance normal, both eyes and all related structures Sclera: sclerae normal Neck: Neck: supple and no JVD Resp: Effort & Inspection: normal respiratory effort Auscultation: clear to auscultation bilaterally Cardio: Rate: regular rate Rhythm: regular rhythm GI: Inspection: non-distended GI Palp: Yes Soft to palpation Skin: General skin exam: normal color Neuro: Speech: normal speech Extrem: General: normal to inspection Psych: Mental Status: mental status grossly normal Objective Data Vital Signs Vital Signs: Vital Signs - 24 hr 02/21/24 12:00 02/21/24 12:00 02/21/24 12:21 Temperature 36.9 C Pulse Rate 68 78 73 Respiratory Rate 20 Blood Pressure 120/78 Pulse Oximetry 97 Oxygen Delivery 02/21/24 14:00 02/21/24 14:00 02/21/24 16:00 Temperature 37.0 C Pulse Rate 66 66 75 Respiratory Rate 16 13 Blood Pressure 114/77 121/91 H Pulse Oximetry 95 94 Oxygen Delivery 02/21/24 16:00 02/21/24 18:00 02/21/24 18:00 Temperature Pulse Rate 77 74 69 Respiratory Rate 18 Blood Pressure 124/79 Pulse Oximetry 96 Oxygen Delivery 02/21/24 20:00 02/21/24 20:00 02/21/24 20:00 Temperature 36.8 C Pulse Rate 62 62 Respiratory Rate 18 Blood Pressure 128/83 Pulse Oximetry 97 Oxygen Delivery Room Air 02/21/24 21:00 02/21/24 22:00 02/22/24 00:00 Temperature Pulse Rate 67 65 Respiratory Rate Blood Pressure Pulse Oximetry Oxygen Delivery Room Air 02/22/24 00:00 02/22/24 00:00 02/22/24 02:00 Temperature 36.7 C Pulse Rate 55 L 55 L 58 L Respiratory Rate 18 Blood Pressure 129/88 Pulse Oximetry 94 Oxygen Delivery 02/22/24 04:00 02/22/24 04:00 02/22/24 04:00 Temperature 36.6 C Pulse Rate 69 69 Respiratory Rate 14 Blood Pressure 123/87 Pulse Oximetry 97 Oxygen Delivery Room Air 02/22/24 06:00 02/22/24 07:52 02/22/24 08:00 Temperature 36.4 C Pulse Rate 59 L 62 70 Respiratory Rate 15 Blood Pressure 135/86 Pulse Oximetry 94 Oxygen Delivery 02/22/24 08:56 Temperature Pulse Rate 73 Respiratory Rate Blood Pressure Pulse Oximetry Oxygen Delivery Intake/Output Intake/Output: Intake & Output 02/19/24 02/20/24 02/21/24 02/22/24 23:59 23:59 23:59 23:59 Intake Total 1290 1640 500 Output Total 1100 1675 1550 Balance 190 35 1050 Meds/Results Medications: Active Medications Generic Name Dose Route Start Last Admin Trade Name Freq PRN Reason Stop Dose Admin Aspirin 81 mg 02/21/24 09:00 02/22/24 08:57 Aspirin 81 Mg Enteric Tablet PO 81 mg QAM [facility] Administration Chlordiazepoxide HCl 10 mg 02/21/24 08:02 Chlordiazepoxide (*Crx) 10 Mg Capsule PO DAILY PRN Anxiety Enoxaparin Sodium 40 mg 02/21/24 09:00 02/22/24 08:59 Enoxaparin 40 Mg/0.4 Ml Syringe SUB-Q Not Given DAILY [facility] Lisinopril 10 mg 02/21/24 09:00 02/22/24 08:56 Lisinopril 10 Mg Tablet PO 10 mg QAM [facility] Administration Metoprolol Tartrate 12.5 mg 02/20/24 21:00 02/22/24 08:56 Metoprolol Tartrate 12.5 Mg Tablet PO 12.5 mg Q12HR [facility]INFA Administration Rosuvastatin Calcium 10 mg 02/22/24 09:00 02/22/24 08:56 Rosuvastatin 10 Mg Tablet PO 10 mg QAM [facility] Administration Ticagrelor 90 mg 02/20/24 23:00 02/22/24 08:56 Ticagrelor 90 Mg Tablet PO 90 mg Q12HR [facility] Administration Labs Labs: Laboratory Results - last 24 hr 02/22/24 03:53 WBC 7.1 RBC 4.29 L Hgb 14.4 Hct 41.5 L MCV 96.7 MCH 33.6 MCHC 34.7 RDW 11.6 Plt Count 273 MPV 9.0 Sodium 135 L Potassium 4.0 Chloride 107 Carbon Dioxide 25 Anion Gap 3 L BUN 8 L Creatinine 0.74 Estim Creat Clear Calc 100 Estimated GFR > 60 Glucose 94 Calcium 8.5 Magnesium 2.0 Total Bilirubin 0.8 AST 50 ALT 21 Alkaline Phosphatase 94 Total Protein 6.0 L Albumin 3.4 L
--- NOTE | 2024-02-22 14:18 | PC.NURSE ---
Spoke with about the meds to bed program upon transferring patient to 202. Spouse says that [facility] will cover the Brilinta on his new insurance so she would like to stay opted out of the program and the prescription needs to be sent to [facility] upon discharge. Notified KENDELL Carroll in IMU of conversation.
--- NOTE | 2024-02-22 14:22 | PC.NURSE ---
This patient, Miguel Cuadra, was transferred to [facility] on 02/22/24 at 1405. Personal belongings sent with patient. Report given to Carly. Appropriate documentation sent with patient. Telemetry box in place. Patient sitting up in chair in room. Notified Ed and Carly of patient's arrival.
[2024-02-22] MEDS: chlordiazePOXIDE (*CRX) 10 MG CAPSULE PO (16:21)
[2024-02-23] VITALS (10 sets, daily range): BP systolic 117–143; BP diastolic 79–84; PULSE 55–70; RESP 16–18; TEMP 36.6–36.8; O2SAT 98–100
[2024-02-23 04:51] LABS: Hematocrit 42.2 % (42.0-52.0); Hemoglobin 14.3 g/dL (14.0-18.0); Mean Corpuscular HGB Conc 33.9 g/dl (32-36); Mean Corpuscular Hemoglobin 33.5 pg (26-34); Mean Corpuscular Volume 98.8 fl (80-100); Mean Platelet Volume 9.4 fl (7.4-10.4); Platelet Count Result 310 k/mm3 (150-375); Red Blood Count 4.27 M/mm3 (4.6-6.20); Red Cell Distribution Width 11.5 % (11.5-14.5); White Blood Count 9.1 K/mm3 (4.5-10.0)
[2024-02-23 05:04] LABS: Alanine Aminotransferase 22 U/L (6-50); Albumin Level 3.4 g/dL (3.5-5.1); Alkaline Phosphatase 87 U/L (38-126); Anion Gap 6 mmol/L (4-12); Aspartate Amino Transferase 33 U/L (17-59); Bilirubin,Total 0.8 mg/dL (0.2-1.3); Blood Urea Nitrogen 9 mg/dL (9-20); Calcium 8.3 mg/dL (8.4-10.2); Carbon Dioxide 22 mmol/L (22-30); Chloride 107 mmol/L (98-107); Estimated CRCL calculation 105 ml/min; Estimated Glomerular Filt Rate > 60; Glucose 90 mg/dL (65-110); Potassium 4.1 mmol/L (3.4-5.0); Sodium 135 mmol/L (137-145)
[2024-02-23] MEDS: ROSUVASTATIN 10 MG TABLET PO (09:14)
[2024-02-23] MEDS: lisinopriL 10 MG TABLET PO (09:14)
[2024-02-23] MEDS: TICAGRELOR 90 MG TABLET PO (09:14)
[2024-02-23] MEDS: ASPIRIN 81 MG ENTERIC TABLET PO (09:15)
[2024-02-23] MEDS: METOPROLOL TARTRATE 12.5 MG TABLET PO (09:15)
--- NOTE | 2024-02-23 09:25 | P.DS_ITS ---
DS: Admitting Diagnosis Discharge Date 02/23/2024 Admitting Diagnosis STEMI DS: Discharge Diagnosis Discharge Diagnosis (1) Hypertension: Code(s): I10 - Essential (primary) hypertension Status: Acute Assessment and Plan: At goal. Continue metoprolol and lisinopril (2) Nonsustained ventricular tachycardia: Code(s): I47.29 - Other ventricular tachycardia Status: Acute Assessment and Plan: Continue metoprolol. Potassium and magnesium today are normal. Potassium 4 and magnesium is 2. Telemetry times 24 more hours and if no further significant ectopy while on metoprolol, DC home tomorrow a.m. (3) STEMI (ST elevation myocardial infarction): Code(s): I21.3 - ST elevation (STEMI) myocardial infarction of unspecified site Status: Acute Assessment and Plan: Continue aspirin, Brilinta, metoprolol, lisinopril and statin (4) Tobacco dependence: Code(s): F17.200 - Nicotine dependence, unspecified, uncomplicated Status: Acute Assessment and Plan: Tobacco abuse counseling performed (5) Hyperlipidemia: Code(s): E78.5 - Hyperlipidemia, unspecified Status: Acute Assessment and Plan: He possibly has a statin allergy. thinks he may have rhabdo in the past. He states that this was years and years ago however. They want to restart a statin. Warned against and concern of future rhabdo with statin use but given the uncertainty of the previous diagnosis, the would like to try statin for for Repatha. Continue rosuvastatin 10 mg daily. Obviously if he develops any sig nificant muscle aches weakness then he should stop the medication immediately DS: Summary Hospital Course Hospital Course: Presented 02/20/24 with chief complaint of shortness of breath. EKG showed ST elevations in the inferior leads with reciprocal ST depressions. He was taken emergently [facility] for coronary angiogram and possible PCI. Status at Discharge Overall status at discharge: patient is back to baseline Time Spent with Patient Time attestation: Total time spent providing and/or coordinating discharge services: Exam Narrative: Alert oriented Const: General: comfortable and uncomfortable HENMT: Ears: TM's normal bilaterally Eyes: General: appearance normal, both eyes and all related structures Sclera: sclerae normal Neck: Neck: supple and no JVD Resp: Effort & Inspection: normal respiratory effort Auscultation: clear to auscultation bilaterally Cardio: Rate: regular rate Rhythm: regular rhythm GI: Inspection: non-distended Skin: General skin exam: normal color Neuro: Speech: normal speech Extrem: General: normal to inspection Other: right radial arterial access site free from hematoma. R radial pulse intact. Good perfusion. Psych: Mental Status: mental status grossly normal Affect: normal affect DS: Data Data Completed and Pending Labs on day of discharge: Labs from last 24 hours 02/23/24 04:14 WBC 9.1 RBC 4.27 L Hgb 14.3 Hct 42.2 MCV 98.8 MCH 33.5 MCHC 33.9 RDW 11.5 Plt Count 310 MPV 9.4 Sodium 135 L Potassium 4.1 Chloride 107 Carbon Dioxide 22 Anion Gap 6 BUN 9 Creatinine 0.69 L Estim Creat Clear Calc 105 Estimated GFR > 60 Glucose 90 Calcium 8.3 L Magnesium 2.0 Total Bilirubin 0.8 AST 33 ALT 22 Alkaline Phosphatase 87 Total Protein 6.0 L Albumin 3.4 L Discharge Plan Discharge Attending physician on discharge: Walter Baker Discharging Clinician: Teri Martínez Patient Disposition: Home, Self-Care Activity: may shower Diet: heart healthy Wound Care Instructions: incision open to air Discharge Instructions: [facility] [address] [place] [id number] DISCHARGE INSTRUCTIONS - POST RADIAL CATH Activity 1. No driving for 24 hours. 2. No lifting more than 5 lb with affected arm for 1 week. 3. May shower ( tomorrow) but no excessive soaking of affected hand/wrist (such as washing dishes), swimming pool or hot tub for 5 days. Wound Care 1. May remove arm board in the morning. 2. May remove gauze dressing in the morning and put Band-Aid over affected radial site. Keep site covered for 3 days. 3. Observe for redness, drainage, swelling or bleeding. Medications DO NOT STOP YOUR MEDICATIONS ONLY YOUR DIRECTOR HUMAN SERVICES CAN STOP THE FOLLOWING MEDICATIONS - PLEASE CALL THE OFFICE WITH QUESTIONS. *Aspirin *Ticagrelor (Brilinta) *Rosuvastatin *Lisinopril *Metoprolol Important Reminders 1. Keep your stent card in your wallet at all times 2. Follow a heart healthy diet paying extra attention to cholesterol and fats. 3. Stay hydrated. 4. If you have chest pain unrelieved by rest or nitroglycerin (if prescribed) call 911 immediately. 5. If you miss one dose of Brilinta (if prescribed) take a tablet at the next time due. If you miss 2 doses take a tablet when you remember and resume at the next time due. *For any other questions please call the office at [phone]. Office hours are 8AM 4:30PM Friday through Friday. Patient Instructions: Antibiotic Form, Metoprolol (By mouth), Aspirin (By mouth), Atorvastatin (By mouth), Rosuvastatin (By mouth), Ticagrelor (By mouth), Heart Healthy Diet (GEN), Acute Coronary Syndrome (GEN), Cardiac Rehabilitation (GEN), Left Heart Catheterization (GEN) Patient Language: Croatian Stand Alone Forms: General Discharge Information Follow-up/Referrals: Teri Martínez APN-C [Advanced Practice Nurse] - (03/10/24 at 10:30. Arrive at 10:15) Discharge Medications: New Brilinta 90 mg Tablet 90 mg PO Q12HR 30 Days Qty: 60 11RF aspirin 81 mg Tablet,Delayed Release (Dr/Ec) 81 mg PO QAM 30 Days Qty: 30 11RF lisinopril 10 mg Tablet 10 mg PO QAM 30 Days Qty: 30 3RF metoprolol succinate [Toprol XL] 25 mg tablet extended release 24 hr 25 mg PO DAILY 30 Days Qty: 30 3RF rosuvastatin [Crestor] 10 mg Tablet 10 mg PO QAM 30 Days Qty: 30 11RF Continued chlordiazepoxide HCl 10 mg capsule 10 mg PO DAILY PRN (Reason: anxiety) Discontinued lisinopril 20 mg tablet 20 mg PO DAILY aspirin 325 mg capsule 325 mg PO DAILY Date of admission: 02/20/24 11:55 Primary Care Provider: UNKNOWN,DOCTOR Admitting Provider: Walter Baker Attending physician on admission: Walter Baker Condition: Stable
== END 2024-02-23 12:34 | disposition home or self-care (01) | DRG 322 ==
LOC: ANHED 11:55 → ANHICU 12:01 → ANHIMU 02-22 14:54
PROVIDERS: Internal Medicine; Admitting Provider Internal Medicine; Emergency Provider Emergency Medicine; Visit Provider Nurse Practitioner
PROC: 4A023N7 Measurement of Cardiac Sampling and Pressure, Left Heart, Percutaneous Approach (ICD-10-PCS; CPT 93452; principal; 2024-02-20 12:00)
PROC: 027034Z Dilation of Coronary Artery, One Artery with Drug-eluting Intraluminal Device, Percutaneous Approach (ICD-10-PCS; 2024-02-20 12:00)
PROC: 027034Z Dilation of Coronary Artery, One Artery with Drug-eluting Intraluminal Device, Percutaneous Approach (ICD-10-PCS; 2024-02-20 12:00)
DX: I21.19 ST elevation (STEMI) myocardial infarction involving other coronary artery of inferior wall (principal); I47.29 Other ventricular tachycardia; I25.10 Atherosclerotic heart disease of native coronary artery without angina pectoris; I11.9 Hypertensive heart disease without heart failure; F17.210 Nicotine dependence, cigarettes, uncomplicated; F41.9 Anxiety disorder, unspecified; E78.5 Hyperlipidemia, unspecified; Z79.82 Long term (current) use of aspirin
CPT/HCPCS: 36415; 80053; 80061; 83036; 83735; 84484; 85025; 85027; 85610; 85730; 86850; 86900; 86901; 87641; 92978; 93005; 93306; 93458; 99285; A9270; C1725; C1753; C1769; C1874; C1887; C1894; C9606; J0583; J1644; J2003; J2250; J2305; J2371; J3010; J7030; J7040

== ENCOUNTER → 2024-03-30 00:29 | Day surgery (SDC) | payer OTHER, SELFPAY ==
[2024-03-29 11:20] VITALS: BMI 21.2
--- OUTSIDE RECORDS SUMMARY | 2024-03-30 00:32 | XMS_ITS | Encounter Summary ---
Author Organization [facility] Address [address] [place] [address] Care Team Providers Care Skiagrapher Name Role Phone Trevor Haile MD Primary Care Provider [phone] Shima Hoyt NP Primary Care Provider [phone] Sourav Owens MD Primary Care Provider [phone] Encounter Details Date Type Department Care Team (Late st Contact Info) Description 04/30/2021 MyChart Message Enc [facility] Family Medicine - [place] [address] [place] [address] Trevor Haile MD [address] [place] [address] Annual Physical Social History Tobacco Use Types Packs/Day Years Used Date Smoking Tobacco: Every Day Cigarettes 1 33 Smokeless Tobacco: Current Chew Alcohol Use Standard Drinks/Week Comments Yes 0 (1 standard drink = 0.6 oz pure alcohol) every day 2-3 bottles(when working) off work 6-7/day Sex and Gender Information Value Date Recorded Sex Assigned at Not on file Legal Sex Male 5:58 AM CDT Gender Identity Not on file Sexual Orientation Not on file COVID-19 Exposure Response Date Recorded In the last 10 days, have yo u been in contact with someone who was confirmed or suspected to have Coronavirus/COVID-19? No / Unsure 05/03/2021 3:32 PM CDT documented as of this encounter Progress Notes * Trevor Haile MD - 04/30/2021 10:01 AM CDT Ok for annual physical this thurs * Chrystal Desai MA - 04/30/2021 9:48 AM CDT Please advise, thank you. documented in this encounter Plan of Treatment Not on file documented as of this encounter Visit Diagnoses Not on filedocumented in this encounter Care Teams Skiagrapher Relationship Specialty Start Date End Date Trevor Haile MD PCP - General FAMILY PRACTICE 06/21/20 08/09/21 Shima Hoyt NP [address] [place] [address] PCP - General NURSE PRACTITIONER 08/10/21 03/28/22 [place] [address] [place] [address] PCP - General FAMILY PRACTICE 03/29/22 documented as of this encounter
--- OUTSIDE RECORDS SUMMARY | 2024-03-30 00:32 | XMS_ITS | Clinical Summary ---
Author Organization [facility] Care Team Providers Care Licsw Name Role Phone Unavailable Primary Care Provider Unavailabl e Social History Tobacco Use Types Packs/Day Years Used Date Smoking Tobacco: Never Assessed Sex and Gender Information Value Date Recorded Sex Assigned at Not on file Legal Sex Male 11:36 AM CLAIM INVESTIGATOR Gender Identity Not on file Sexual Orientation Not on file Plan of Treatment Health Maintenance Due Date Last Done Comments Hepatitis C Virus (HCV) Screening 1971 TdaP Immunization 1971 Hepatitis B Immunization (1 of 3 - 19+ 3-dose series) 11/17/1990 Colonoscopy 11/17/2016 Colorectal Cancer Screening 11/17/2016 Cologuard 11/17/2021 Immunochemical Fecal Occult Blood 11/17/2021 Pneumococcal Immunization (5 0+ years) (1 of 1 - PCV) 11/17/2021 Zoster Immunization (1 of 2) 11/17/2021 Influenza Immunization (#1) 2023 SARS-COV-2 Immunization ( - season) 2023 Respiratory Syncytial Virus (RSV) Immunization (Adult) (1 - 1-dose 75+ series) 11/17/2046 DTaP/Tdap/Td Immunization Discontinued 02/10/2013 Meningococcal Immunization (ACWY) Aged Out No longer eligible based on patient's age to complete this topic Pneumococcal Immunization Combined Aged Out No longer eligible based on patient's age to complete this topic Rotavirus Immunization Aged Out No lo nger eligible based on patient's age to complete this topic
--- OUTSIDE RECORDS SUMMARY | 2024-03-30 00:32 | XMS_ITS | Encounter Summary ---
Author Organization [facility] Address [address] [place] [address] Care Team Providers Care Bible Worker Name Role Phone Trevor Haile MD Primary Care Provider [phone] Shima Hoyt NP Primary Care Provider [phone] Sourav Owens MD Primary Care Provider [phone] Encounter Details Date Type Department Care Team (Late st Contact Info) Description 04/24/2021 Leap Commercet Message Enc [facility] Family Medicine - [place] [address] [place] [address] Trevor Haile MD [address] [place] [address] Order for blood work Social History Tobacco Use Types Packs/Day Years [...] on file Sexual Orientation Not on file documented as of this encounter Plan of Treatment Not on file documented as of this encounter Visit Diagnoses Not on filedocumented in this encounter Care Teams Bible Worker Relationship Specialty Start Date End Date Trevor Haile MD PCP - General FAMILY PRACTICE 06/21/20 08/09/21 Shima Hoyt NP [address] [place] [address] PCP - General NURSE PRACTITIONER 08/10/21 03/28/22 [place] [address] [place] [address] PCP - General FAMILY PRACTICE 03/29/22 documented as of this encounter
--- OUTSIDE RECORDS SUMMARY | 2024-03-30 00:32 | XMS_ITS | Encounter Summary ---
Author Organization [facility] Address [address] [place] [address] Care Team Providers Care Anthropology And Archeology Instructor Name Role Phone Sourav Owens MD Primary Care Provider [phone] Encounter Details Date Type Department Care Team (Late st Contact Info) Description 04/03/2023 Self Health Networkt Message Enc [facility] Family & Internal Medicine [facility] [address] [place] [phone] [place] [id number] [place] [address] Appointment this morning Social History Tobacco Use Types Packs/Day Years Used Date Smoking Tobacco: Every Day Cigarettes 1 33 Smokeless Tobacco: Current Chew Alcohol Use Standard Drinks/Week Comments Yes 0 (1 standard drink = 0.6 oz pure alcohol) every day 2-3 bottles(when working) off work 6-7/day PHQ-2 Answer Date Recorded Patient Health Questionnaire-2 Score 0 02/15/2022 Sex and Gender Information Value Date Recorded Sex Assigned at Not on file Legal Sex Male 5:58 AM CDT Gender Identity Not on file Sexual Orientation Not on file documented as of this encounter Functional Status * RETIRED Are you deaf or do you have serious difficulty hearing Answer Date of Assessment Author Status No 11/17/2021 6:00 PM CDT Activ e * RETIRED Are you blind or do you have serious difficulty seeing, even when wearing glasses? Answer Date of Assessment Author Status No 11/17/2021 6:00 PM CDT Activ e * Do you have serious difficulty walking or climbing stairs? Answer Date of Assessment Author Status No 11/17/2021 6:00 PM Julia Turner RN Active * Do you have difficulty dressing or bathing? Answer Date of Assessment Author Status No 11/17/2021 6:00 PM Julia Turner RN Active * Because of a physical, mental, or emotional condition, do you have difficulty doing errands alone such as visiting a doctor's office or shopping? Answer Date of Assessment Author Status No 11/17/2021 6:00 PM Julia Turner RN Active documented as of this encounter Mental Status * Because of a physical, mental, or emotional condition, do you have serious difficulty concentrating, remembering, or making decisions? Answer Entry Date Author Status No 11/17/2021 6:00 PM Julia Turner RN Active documented in this encounter Plan of Treatment Not on file documented as of this encounter Visit Diagnoses Not on filedocumented in this encounter Care Teams Anthropology And Archeology Instructor Relationship Specialty [place] [address] [place] [address] PCP - General FAMILY PRACTICE 03/29/22 documented as of this encounter
--- OUTSIDE RECORDS SUMMARY | 2024-03-30 00:32 | XMS_ITS | Encounter Summary ---
Author Organization [facility] Address [address] [place] [address] Care Team Providers Care Rate Quoting Operator Name Role Phone Sourav Owens MD Primary Care Provider [phone] Encounter Details Date Type Department Care Team (Late st Contact Info) Description 04/04/2023 Radial Networkt Message Enc [facility] Family & Internal Medicine [facility] [address] [place] [phone] [place] [id number] [place] [address] [place] sent to mail order pharmacy by mistake Social History Tobacco Use Types Packs/Day Years [...] Author Status No 11/17/2021 6:00 PM CDT Julia Reyes RN Active * Do you have difficulty dressing or bathing? Answer Date of Assessment Author Status No 11/17/2021 6:00 PM CDT Julia Reyes RN Active * Because of a physical, mental, or emotional condition, do you have difficulty doing errands alone such as visiting a doctor's office or shopping? Answer Date of Assessment Author Status No 11/17/2021 6:00 PM CDT Julia Reyes RN Active documented as of this encounter Mental Status * Because of a physical, mental, or emotional condition, do you have serious difficulty concentrating, remembering, or making decisions? Answer Entry Date Author Status No 11/17/2021 6:00 PM CDT Julia Reyes RN Active documented in this encounter Progress Notes * Lucía Jaffe LPN - 04/07/2023 7:49 AM CST Pt ,nerissa, called need hydrocodone sent to pharm [facility] documented in this encounter Plan of Treatment Not on file documented as of this encounter Visit Diagnoses Not on filedocumented in this encounter Care Teams Rate Quoting Operator Relationship Specialty [place] [address] [place] [address] PCP - General FAMILY PRACTICE 03/29/22 documented as of this encounter
--- OUTSIDE RECORDS SUMMARY | 2024-03-30 00:32 | XMS_ITS | Clinical Summary ---
Author Organization [facility] Address [address] [place]: Epic Prelude ADT [place] [address] Care Team Providers Care Chief Petroleum Engineer Name Role Phone Unavailable Primary Care Provider Unavailabl e Social History Tobacco Use Types Packs/Day Years Used Date Smoking Tobacco: Never Assessed Sex and Gender Information Value Date Recorded Sex Assigned at Not on file Legal Sex Male 5:43 AM TAR POT MAN Gender Identity Not on file Sexual Orientation Not on file Plan of Treatment Health Maintenance Due Date Last Done Comments DTAP/TDAP/TD VACCINES (1 - Tdap) 11/17/1990 HEPATITIS B VACCINES (1 of 3 - 19+ 3-dose series) 09/1990 COLORECTAL SCREENING 11/17/2016 Colorectal Cancer Screening 11/17/2016 FIT-DNA Q 3 years 11/17/2016 FIT/FOBT Q 1 year 11/17/2016 Flex Sig/CT Colonography Q 5 years 11/17/2016 ZOSTER VACCINE (1 of 2) 11/17/2021 INFLUENZA VACCINE (#1) 2023
--- OUTSIDE RECORDS SUMMARY | 2024-03-30 00:32 | XMS_ITS | Encounter Summary ---
Author Organization [facility] Address [address] [place] [address] Care Team Providers Care Machine Tool Mechanic Name Role Phone Sourav Owens MD Primary Care Provider [phone] Encounter Details Date Type Department Care Team (Late st Contact Info) Description 04/21/2023 [place] [employer] Message Enc [facility] Medical Group Family & Internal Medicine [facility] [id number] [place] [phone] [place] [id number] [place] [address] Short Term Disability paperwork Social History Tobacco Use Types Packs/Day Years [...] on filedocumented in this encounter Care Teams Machine Tool Mechanic Relationship Specialty [place] [address] [place] [address] PCP - General FAMILY PRACTICE 03/29/22 documented as of this encounter
--- OUTSIDE RECORDS SUMMARY | 2024-03-30 00:32 | XMS_ITS | Encounter Summary ---
Author Organization [facility] Address [facility] [place] [address] Care Team Providers Care Chief School Finance Officer Name Role Phone Shima Hoyt NP Primary Care Provider [phone] Sourav Owens MD Primary Care Provider [phone] Encounter Details Date Type Department Care Team (Late st Contact Info) Description 12/03/2021 [employer] Message [employer] [facility] Medical Group Family Medicine [facility] [address] [place] [id number] [place] Provider Short Term Disability Paperwork Social History Tobacco Use Types Packs/Day Years [...] suspected to have Coronavirus/COVID-19? No / Unsure 11/28/2021 9:50 AM CDT documented as of this encounter Functional Status [...] Assessment Author Status No 11/17/2021 6:00 PM ANTONIAT Julia Reyes RN Active * Do you have difficulty dressing or bathing? Answer Date of Assessment Author Status No 11/17/2021 6:00 PM ANTONIAT Julia Reyes RN Active * Because of a physical, mental, or emotional condition, do you have difficulty doing errands alone such as visiting a doctor's office or shopping? Answer Date of Assessment Author Status No 11/17/2021 6:00 PM ANTONIAT Julia Reyes RN Active documented as of [...] on filedocumented in this encounter Care Teams Chief School Finance Officer Relationship Specialty Start Date End Date Shima Hoyt NP [address] [place] [address] PCP - General NURSE PRACTITIONER 08/10/21 03/28/22 [place] [address] [place] [address] PCP - General FAMILY PRACTICE 03/29/22 documented as of this encounter
--- OUTSIDE RECORDS SUMMARY | 2024-03-30 00:32 | XMS_ITS | Encounter Summary ---
Author Organization [facility] Address [facility] [place] [address] Care Team Providers Care Casino Enforcement Agent Name Role Phone Shima Hoyt NP Primary Care Provider [phone] Sourav Owens MD Primary Care Provider [phone] Encounter Details Date Type Department Care Team (Late st Contact Info) Description 11/21/2021 [employer] Message Enc [facility] Medical Group Family Medicine - [place] [address] [place] [phone] Shima Hoyt NP [address] [place] [address] Labwork Results Social History Tobacco Use Types Packs/Day Years [...] suspected to have Coronavirus/COVID-19? No / Unsure 11/21/2021 2:48 PM CDT documented as of this encounter Functional [...] documented in this encounter Progress Notes * Armani Hernandez RN - 11/22/2021 7:46 AM CDT Please advise. Thanks documented in this encounter Plan of Treatment Not on file documented as of this encounter Visit Diagnoses Not on filedocumented in this encounter Care Teams Casino Enforcement Agent Relationship Specialty Start Date End Date Sh[place] [address] PCP - General NURSE PRACTITIONER 08/10/21 03/28/22 [place] [address] [place] [address] PCP - General FAMILY PRACTICE 03/29/22 documented as of this encounter
--- OUTSIDE RECORDS SUMMARY | 2024-03-30 00:32 | XMS_ITS | Encounter Summary ---
Author Organization [facility] Address 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
--- OUTSIDE RECORDS SUMMARY | 2024-03-30 00:32 | XMS_ITS | Clinical Summary ---
Author Organization [address] Address [facility] [place] [address] Care Team Providers Care Piece Meat Trimmer Name Role Phone Sourav Owens MD Primary Care Provider [phone]- [phone] Allergies Active Allergy Reactions Criticality Noted Date Comments Cefazolin Other (See comments) Medium 05/11/2008 Yeast infection Midazolam Mental status changes Medium 05/11/2008 Sulfa (Sulfonamide Antibiotics) Headache,Rash Medium 06/10/2020 Sulfamethoxazole-Trime thoprim Itching,Rash,Redness Medium 02/10/2018 Medications chlordiazePOXID E (LIBRIUM) 10 mg capsule Take 1 capsule (10 mg total) by mouth daily 2 Active ticagrelor (Brilinta) 90 mg tablet Take 1 tablet (90 mg total) by mouth 2 (two) times a day 5 Active chlordiazePOXID E (LIBRIUM) 10 mg capsule Take 1 capsule (10 mg total) by mouth 3 (three) times a day as needed 0 Active aspirin 81 mg enteric coated tablet Take 1 tablet (81 mg total) by mouth daily Active triamcinolone (KENALOG) 0.1 % creamIndication s:Allergic contact dermatitis, unspecified trigger Apply topically 2 (two) times a day For 5-7 days; apply to itchy areas on back and abdomen. 15 g 5 Active lisinopriL (PRINIVIL,ZESTR IL) 10 mg tablet Take 1 tablet (10 mg total) by mouth daily 90 tablet 3 5 Active metoprolol XL (TOPROL-XL) 25 mg extended release tablet Take 1 tablet (25 mg total) by mouth daily 90 tablet 3 5 Active rosuvastatin (CRESTOR) 10 mg tablet Take 1 tablet (10 mg total) by mouth daily 90 tablet 3 5 Active aspirin 325 mg tablet Take 1 tablet (325 mg total) by mouth daily 5 03/02/19 25 Discontinu ed(Therapy completed) lisinopriL (PRINIVIL,ZESTR IL) 20 mg tablet Take 1 tablet (20 mg total) by mouth daily 2 03/02/19 25 Discontinu ed(Alterna te therapy) acetaminophen (TYLENOL) 500 mg tablet Take 1 tablet (500 mg total) by mouth every 6 (six) hours as needed for pain 30 tablet 4 03/02/19 25 Discontinu ed(Alterna te therapy) HYDROcodone-rufino taminophen (NORCO) 5-325 mg per tabletIndicatio ns:Pain Take 1 tablet by mouth every 6 (six) hours as needed for pain 10 tablet 4 03/02/19 25 Discontinu ed(Therapy completed) ketorolac (TORADOL) 10 mg tablet Take 1 tablet (10 mg total) by mouth every 6 (six) hours as needed for pain Take with food 10 tablet 4 03/02/19 25 Discontinu ed(Therapy completed) metoprolol XL (TOPROL-XL) 25 mg extended release tablet Take 1 tablet (25 mg total) by mouth daily 5 03/17/19 25 Discontinu ed(Reorder ) lisinopriL (PRINIVIL,ZESTR IL) 10 mg tablet Take 1 tablet (10 mg total) by mouth daily 03/17/19 25 Discontinu ed(Reorder ) rosuvastatin (CRESTOR) 10 mg tablet Take 1 tablet (10 mg total) by mouth daily 03/17/19 25 Discontinu ed(Reorder ) Active Problems Problem Noted Date Diagnosed Date STEMI involving left circumflex coronary artery 03/02/2024 Coronary artery disease invo lving table mountain coronary artery of [place] heart without angina pectoris 03/02/2024 Essential hypertension 03/02/2024 Encounters Date Type Department Care Team Description 03/17/2024 Telephone [facility] [address] [place] [address] [place] [phone] Walter Baker MD 03/15/2024 1:00 PM INTERNAL AUDIT MANAGER Office Visit [facility] [address] [place] [address] [place] [phone] Visit for wound check (Primary Dx) 03/05/2024 Telephone [facility] [address] [place] [address] [place] [phone] Walter Baker MD 03/04/[address] [place] [phone] Laura Jeffrey NP 03/03/2024 Orders Only [place] [address] [place] [phone] Laura Jeffrey NP 03/02/2024 1:30 PM INTERNAL AUDIT MANAGER Office Visit [facility] [address] [place] [address] [place] [phone] Laura Jeffrey NP STEMI involving left circumflex coronary artery (HCC) (Primary Dx); Coronary artery disease involving table mountain coronary artery of table mountain heart without angina pectoris; Presence of stent in coronary artery; Essential hypertension; Recently quit using tobacco; Hospital discharge follow-up; Allergic contact dermatitis, unspecified trigger 03/01/2024 Telephone [facility] [address] [place] [address] [place] [phone] Walter Baker MD rashes; Medication Reaction 02/24/2024 Orders Only [address] [place] [phone] Walter Baker MD from Last 3 Months Surgical History Surgery Date Site/Laterality Comments ANGIOPLASTY 02/20/2024 APPENDECTOMY 2018 HERNIA REPAIR 2009 VASECTOMY 1996 Medical History Medical History Date Comments Anxiety 1980 Migraines 1990 Hypertension 2018 Family History Medical History Relation Name Comments COPD Father Father Heart disease Father Father Arthritis Mother Mother Hyperlipidemia Mother Mother Hypertension Mother Mother Relation Name Status Comments Father Father Mother Mother Social History Tobacco Use Types Packs/Day Years Used Date Smoking Tobacco: Former Cigarettes Q uit: 02/20/2024 Smokeless Tobacco: Former Chew Quit: 02/20/2024 Personal Safety Answer Date Recorded Have you ever been in or are you currently in a harmful physical or emotional relationship or is someone making you feel afraid or unsafe? Denies 03/31/2023 Sex and Gender Information Value Date Recorded Sex Assigned at Not on file Legal Sex Male 5:05 PM INTERNAL AUDIT MANAGER Gender Identity Not on file Sexual Orientation Not on file Obstetrics History Last Filed Vital Signs Vital Sign Reading Time Taken Comments Blood Pressure 118/78 03/02/2024 1:30 PM INTERNAL AUDIT MANAGER Pulse 73 03/02/2024 1:30 PM INTERNAL AUDIT MANAGER Temperature 36.7 C (98.1 F) 03/31/2023 6:25 AM INTERNAL AUDIT MANAGER Respiratory Rate 18 03/31/2023 8:20 AM INTERNAL AUDIT MANAGER Oxygen Saturation 99% 03/02/2024 1:30 PM INTERNAL AUDIT MANAGER Inhaled Oxygen Concentration - - Weight 66.2 kg (146 lb) 03/02/2024 1:30 PM INTERNAL AUDIT MANAGER Height 177.8 cm (5' 10 ) 03/02/2024 1:30 PM INTERNAL AUDIT MANAGER Body Mass Index 20.95 03/02/2024 1:30 PM INTERNAL AUDIT MANAGER Plan of Treatment Health Maintenance Due Date Last Done Comments Colon Cancer Screening-Colonoscopy 1971 Depression Screening 1971 Hepatitis C Screening 1971 Prostate Cancer Screening-PSA 1971 Hepatitis B Screening 11/17/1989 Regular Well Visit/Exam 18-64 11/17/1989 DTaP/Tdap/Td Vaccine (1 - Tdap) 02/11/2013 4 Zoster Vaccine (1 of 2) 11/17/2021 Influenza Vaccine (#1) 2023 Pneumococcal vaccine <65 Aged Out No longer eligible based on patient's age to complete this topic Procedures Procedure Name Priority Date/Time Associated Diagnosis Comments CARDIOLOGY DOCUMENT SCAN Routine 02/22/2024 10:44 AM INTERNAL AUDIT MANAGER CARDIOLOGY DOCUMENT SCAN Routine 02/21/2024 10:42 AM INTERNAL AUDIT MANAGER CARDIOLOGY DOCUMENT SCAN Routine 02/20/2024 10:35 AM INTERNAL AUDIT MANAGER LIPID PANEL Routine 02/20/2024 from Last 3 Months Results * Cardiology Document Scan (02/22/2024 10:44 AM INTERNAL AUDIT MANAGER) Anatomical Region Laterality Modality Other us Clifford Britt MD CV CARDIAC SERVICES PROCE DURES Final Result * Cardiology Document Scan (02/21/2024 10:42 AM INTERNAL AUDIT MANAGER) Anatomical Region Laterality Modality Other us Clifford Britt MD CV CARDIAC SERVICES PROCE DURES Final Result * Cardiology Document Scan (02/20/2024 10:35 AM INTERNAL AUDIT MANAGER) Anatomical Region Laterality Modality Other us Walter Baker MD CV CARDIAC SERVICES PRO CEDURES Final Result * (ABNORMAL) Lipid panel (02/20/2024) SCRIBED Cholesterol, Total 218(A) < - 200 EXTERNAL LAB SCRIBED HDL 41(A) > - 40 EXTERNAL LAB SCRIBED LDL 144(A) < - 100 EXTERNAL LAB SCRIBED Triglycerides 145 < - 150 EXTERNAL LAB Blood 02/20/2024 Historical Provider LAB BLOOD ORDERABLES Ольга colón Result EXTERNAL LAB from Last 3 Months Insurance BLUE ACCESS CHOICE [employer] ACCESS [place]ICE [place] [address] [place] [address] Care Teams Piece Meat Trimmer Relationship Specialty [place] [address] [address] PCP - General Family Practice 03/29/23
--- OUTSIDE RECORDS SUMMARY | 2024-03-30 00:32 | XMS_ITS | Referral Summary ---
Author Organization [place] [id number] [facility] Address [address] [place] [address] Care Team Providers Care Dental Laboratory Worker Name Role Phone Sourav Owens MD Primary Care Provider [phone]- [phone] Encounters Date Type Department Care Team Description 03/17/2024 Telephone [facility] Medical [facility] Cardiology [address] [place] [address] [place] [phone] Walter Baker MD 03/15/2024 1:00 PM CYBER DEFENSE INCIDENT RESPONDER Office Visit [facility] Medical [facility] Cardiology [address] [place] [address] [place] [phone] Visit for wound check (Primary Dx) 03/05/2024 Telephone [facility] [address] [place] [address] [place] [phone] Walter Baker MD 03/04/2024 Telephone [facility] [address] [place] [address] [place] [phone] Laura Jeffrey NP 03/03/2024 Orders Only [facility] [address] [place] [address] [address] [place] [phone] Laura Jeffrey NP 03/02/2024 1:30 PM CYBER DEFENSE INCIDENT RESPONDER Office Visit [facility] [address] [place] [address] [address] [place] [phone] Laura Jeffrey NP STEMI involving left circumflex coronary artery (HCC) (Primary Dx); Coronary artery disease involving kake coronary artery of kake heart without angina pectoris; Presence of stent in coronary artery; Essential hypertension; Recently quit using tobacco; Hospital discharge follow-up; Allergic contact dermatitis, unspecified trigger 03/01/2024 Telephone [facility] [address] [place] [phone] Walter Baker MD rashes; Medication Reaction 02/24/2024 Orders Only [facility] [address] [place] [phone] Walter Baker MD from Last 3 Months Allergies Active Allergy Reactions Criticality Noted Date [...] artery 03/02/2024 Coronary artery disease invo lving kake coronary artery of kake heart without angina pectoris 03/02/2024 Essential hypertension 03/02/2024 Social History Tobacco Use Types Packs/Day Years [...] on file Legal Sex Male 5:05 PM CYBER DEFENSE INCIDENT RESPONDER Gender Identity Not on file Sexual Orientation Not on file Last Filed Vital Signs Vital Sign Reading Time Taken Comments Blood Pressure 118/78 03/02/2024 1:30 PM CYBER DEFENSE INCIDENT RESPONDER Pulse 73 03/02/2024 1:30 PM CYBER DEFENSE INCIDENT RESPONDER Temperature 36.7 C (98.1 F) 03/31/2023 6:25 AM CYBER DEFENSE INCIDENT RESPONDER Respiratory Rate 18 03/31/2023 8:20 AM CYBER DEFENSE INCIDENT RESPONDER Oxygen Saturation 99% 03/02/2024 1:30 PM CYBER DEFENSE INCIDENT RESPONDER Inhaled Oxygen Concentration - - Weight 66.2 kg (146 lb) 03/02/2024 1:30 PM CYBER DEFENSE INCIDENT RESPONDER Height 177.8 cm (5' 10 ) 03/02/2024 1:30 PM CYBER DEFENSE INCIDENT RESPONDER Body Mass Index 20.95 03/02/2024 1:30 PM CYBER DEFENSE INCIDENT RESPONDER Plan of Treatment Not on file Procedures Procedure Name Priority Date/Time Associated Diagnosis Comments CARDIOLOGY DOCUMENT SCAN Routine 02/22/2024 10:44 AM CYBER DEFENSE INCIDENT RESPONDER CARDIOLOGY DOCUMENT SCAN Routine 02/21/2024 10:42 AM CYBER DEFENSE INCIDENT RESPONDER CARDIOLOGY DOCUMENT SCAN Routine 02/20/2024 10:35 AM CYBER DEFENSE INCIDENT RESPONDER LIPID PANEL Routine 02/20/2024 from Last 3 Months Results * Cardiology Document Scan (02/22/2024 10:44 AM CYBER DEFENSE INCIDENT RESPONDER) Anatomical Region Laterality Modality Other us Clifford Britt MD CV CARDIAC SERVICES PROCE DURES Final Result * Cardiology Document Scan (02/21/2024 10:42 AM CYBER DEFENSE INCIDENT RESPONDER) Anatomical Region Laterality Modality Other us Clifford Britt MD CV CARDIAC SERVICES PROCE DURES Final Result * Cardiology Document Scan (02/20/2024 10:35 AM CYBER DEFENSE INCIDENT RESPONDER) Anatomical Region Laterality Modality Other us Walter Baker MD CV CARDIAC SERVICES PRO CEDURES Final Result * (ABNORMAL) Lipid panel (02/20/2024) SCRIBED Cholesterol, Total 218(A) < - 200 EXTERNAL LAB SCRIBED HDL 41(A) > - 40 EXTERNAL LAB SCRIBED LDL 144(A) < - 100 EXTERNAL LAB SCRIBED Triglycerides 145 < - 150 EXTERNAL LAB Blood 02/20/2024 us Historical Provider LAB BLOOD ORDERABLES Ольга colón Result EXTERNAL LAB from Last 3 Months Insurance [employer] Tele[employer] ID [employer] Tele[employer] CHOICE ID [employer] Tele[employer] CHOICE ID [facility] Care Teams Dental Laboratory Worker Relationship Specialty [place] [address] [facility] [address] [address] PCP - General Family Practice 03/29/23
--- OUTSIDE RECORDS SUMMARY | 2024-03-30 00:32 | XMS_ITS | Encounter Summary ---
Author Organization [facility] Address [facility] [place] [address] Care Team Providers Care Hot Plate Plywood Press Offbearer Name Role Phone Shima Hoyt NP Primary Care Provider [phone] Sourav Owens MD Primary Care Provider [phone] Encounter Details Date Type Department Care Team (Late st Contact Info) Description 11/21/2021 [employer] Message Enc [facility] Medical Group Family Medicine - [place] [address] [place] [phone] Shima Hoyt NP [address] [place] [address] Blood work results Social History Tobacco Use Types Packs/Day Years [...] Author Status No 11/17/2021 6:00 PM CDT Jluia Reyes RN Active * Do you have [...] Progress Notes * Armani Hernandez RN - 11/21/2021 3:05 PM CDT FYI documented in this encounter Plan of Treatment Not on file documented as of this encounter Visit Diagnoses Not on filedocumented in this encounter Care Teams Hot Plate Plywood Press Offbearer Relationship Specialty Start Date End Date Shima [place] [address] PCP - General NURSE PRACTITIONER 08/10/21 03/28/22 [place] [address] [place] [address] PCP - General FAMILY PRACTICE 03/29/22 documented as of this encounter
--- OUTSIDE RECORDS SUMMARY | 2024-03-30 00:32 | XMS_ITS | Clinical Summary ---
Author Organization [facility] Address [address] [place] [address] Care Team Providers Care Mine Development Engineer Name Role Phone Sourav Owens MD Primary Care Provider [phone] Allergies Active Allergy Reactions Criticality Noted Date Comments Cefazolin Other (see comment) Medium 11/17/2021 Yeast infection Sulfa Antibiotics Headache,Rash Low 06/10/2020 Sulfamethoxazole-Trimet hoprim Itching,Rash,Redness Medium 02/10/2018 Midazolam Memory Loss Medium 11/17/2021 Medications Garlic 10 MG Cap Take 10 mg by mouth daily. Active fish oil 1000 MG Cap capsule Take 1 capsule (1,000 mg total) by mouth daily. Active vitamin D3 (CHOLECALCIFEROL) 25 mcg tabletIndications :Healthcare maintenance Take 1 tablet (25 mcg total) by mouth daily. 30 tablet 1 023 Active Additional Information Patient not taking.Reported on 03/05/2024 ticagrelor (BRILINTA) 90 mg tablet Take 1 tablet (90 mg total) by mouth 2 (two) times daily. 025 Active triamcinolone (KENALOG) 0.1 % cream APPLY TO THE AFFECTED AREA TWICE DAILY FOR 5 TO 7 DAYS 025 Active aspirin EC (ECOTRIN) 81 MG tablet Take 1 tablet (81 mg total) by mouth daily. Active metoprolol succinate ER (TOPROL-XL) 25 MG 24 hr tabletIndications :Essential hypertension Take 1 tablet (25 mg total) by mouth daily. 90 tablet 025 Active lisinopril (PRINIVIL) 10 MG tabletIndications :Essential hypertension Take 1 tablet (10 mg total) by mouth daily. 90 tablet 025 Active rosuvastatin (CRESTOR) 10 MG tabletIndications :Mixed hyperlipidemia Take 1 tablet (10 mg total) by mouth daily. 90 tablet 025 Active chlordiazePOXIDE (LIBRIUM) 10 MG capsuleIndication s:LESIA (generalized anxiety disorder) Take one tablet once a day as needed 30 capsule 1 Active aspirin 325 MG tablet Take 1 tablet (325 mg total) by mouth daily. 2024 Discontinued ketorolac (TORADOL) 10 MG tablet Take 1 tablet (10 mg total) by mouth. 024 2024 Discontinued ACETAMINOPHEN EXTRA STRENGTH 500 MG tablet Take 1 tablet (500 mg total) by mouth every 6 (six) hours as needed. 2024 Discontinued bupivacaine (PF) 0.75 % SOLN 4 mL, lidocaine (PF) 4 % SOLN 4 mL 8 mLs by Retrobulbar route. 2024 Discontinued chlordiazePOXIDE (LIBRIUM) 10 MG capsuleIndication s:LESAI (generalized anxiety disorder) Take one tablet once a day as needed 30 capsule 1 024 2024 Discontinued(R eorder) lisinopril (PRINIVIL) 20 MG tabletIndications :Essential hypertension Take 1 tablet (20 mg total) by mouth daily. 90 tablet 3 024 2024 Discontinued metoprolol succinate ER (TOPROL-XL) 25 MG 24 hr tablet 025 2024 Discontinued(R eorder) lisinopril (PRINIVIL) 10 MG tablet Take 1 tablet (10 mg total) by mouth daily. 2024 Discontinued(R eorder) rosuvastatin (CRESTOR) 10 MG tablet Take 1 tablet (10 mg total) by mouth daily. 2024 Discontinued(R eorder) chlordiazePOXIDE (LIBRIUM) 10 MG capsuleIndication s:LESIA (generalized anxiety disorder) Take one tablet once a day as needed 30 capsule 1 025 2024 Discontinued(R eorder) Active Problems Problem Noted Date Diagnosed Date CAD S/P percutaneous coronary angioplasty 2024 Non-sustained ventricular tachycardia ([facility]) 02/20/2024 STEMI involving left circumf maribell coronary artery ([facility]) 02/20/2024 Cellulitis 11/17/2021 Mixed hyperlipidemia 06/27/2020 Tobacco abuse 12/18/2018 PVD (peripheral vascular disease) 12/18/2018 Essential hypertension 05/29/2018 Anxiety 05/29/2018 Resolved Problems Problem Noted Date Diagnosed Date Resolved Date S/P appendectomy, follow-up exam 11/28/2017 10/22/2019 Encounter for preventive health examination 11/20/2017 10/22/2019 Encounters Date Type Department Care Team Description 03/19/2024 Telephone [facility] [address] [address] Sourav Owens MD Medication Problem 03/05/2024 4:40 PM TROUBLE TRACER Office Visit [facility] [address] [address] Sourav Owens MD Hospital Follow Up (Pt had a stemi NM and placed a sent @ [facility] ) 03/05/2024 Travel 03/02/2024 Scan [facility] Scanned, Doc [facility] 01/13/2024 Scan [facility] Scanned, Doc Med Group 12/29/2023 4:20 PM TROUBLE TRACER Office Visit [facility] [address] [address] Sourav Owens MD Follow Up 12/29/2023 Travel from Last 3 Months Immunizations Name Administration Dates Next Due Td (Generic) 02/10/2013 Td, Adsorbed, Preservative F ree, Adult Use, Lf Unspecified 02/10/2013 Family History Medical History Relation Comments COPD Father Heart Disease Father Hyperlipidemia Father Arthritis Mother COPD Mother Hyperlipidemia Mother Hypertension Mother Relation Status Comments Father Alive Mother Alive Social History Tobacco Use Types Packs/Day Years Used Date Smoking Tobacco: Former Cigarettes 1 33 Q uit: 02/20/2024 Smokeless Tobacco: Current Chew Tobacco Cessation:Ready to Q uit: Yes; Counseling Given: No Alcohol Use Standard Drinks/Week Comments Yes 1.7 (1 standard drink = 0.6 oz p ure alcohol) 1 day PHQ-2 Answer Date Recorded Patient Health Questionnaire-2 Score 0 04/28/2023 Sex and Gender Information Value Date Recorded Sex Assigned at Not on file Legal Sex Male 5:58 AM CDT Gender Identity Not on file Sexual Orientation Not on file Last Filed Vital Signs Vital Sign Reading Time Taken Comments Blood Pressure 110/79 03/05/2024 4:54 PM TROUBLE TRACER Pulse 103 03/05/2024 4:54 PM TROUBLE TRACER Temperature 36.9 C (98.4 F) 03/05/2024 4:54 PM TROUBLE TRACER Respiratory Rate 16 03/05/2024 4:54 PM TROUBLE TRACER Oxygen Saturation 98% 03/05/2024 4:54 PM TROUBLE TRACER Inhaled Oxygen Concentration - - Weight 66.7 kg (147 lb) 03/05/2024 4:54 PM TROUBLE TRACER Height 177.8 cm (5' 10 ) 03/05/2024 4:54 PM TROUBLE TRACER Body Mass Index 21.09 03/05/2024 4:54 PM TROUBLE TRACER Plan of Treatment Health Maintenance Due Date Last Done Comments Colorectal Cancer Screening Colonoscopy (10 Years) 1971 Pneumococcal Vaccine: Pediatrics (0 to 5 Years) and At-Risk Patients (6 to 64 Years) (1 of 2 - PCV) 11/17/1977 Hepatitis C 11/17/1989 Hepatitis B Vaccines (1 of 3 - 19+ 3-dose series) 11/17/1990 DTaP, Tdap and Td Vaccines (1 - Tdap) 02/11/2013 02/10/2013, 02/10/2013 Zoster Vaccines (1 of 2) 11/17/2021 ASCVD LDL 08/03/2023 08/02/2022, 04/10, 06/20/2020, Additional history exists COVID-19 Vaccine ( season) 2023 Influenza Adult (#1) 2023 PHQ-2 (Physician [place]) 02/11/2024 04/28/2023 Lung Cancer Screening 03/31/2024 03/31/2023 Annual Physical 12/28/2024 12/29/2023, 06/10, 05/03/2021, Additional history exists Meningococcal B Vaccine Aged Out No l onger eligible based on patient's age to complete this topic Meningococcal Vaccine Aged Out No austen eloisa eligible based on patient's age to complete this topic RSV Immunizations Under 20 Months Aged Out No longer eligible based on patient's age to complete this topic Procedures Procedure Name Priority Date/Time Associated Diagnosis Comments LIPID PANEL 08/02/2022 9:48 AM CDT from Last 3 Months or Most Recently Relevant to Health Maintenance Results * (ABNORMAL) LIPID PANEL (08/02/2022 9:48 AM CDT) Pathologist [facility] CHOLESTEROL 213(H) 100 - 199 mg/dL [facility] 1 TRIGLYCERIDES 128 0 - 149 mg/dL [facility] 1 HDL 46 >39 mg/dL [facility] 1 VLDL CALCULATION 23 5 - 40 mg/dL [facility] 1 LDL (CALCULATED) 144(H) 0 - 99 mg/dL [facility] 1 08/02/2022 9:48 AM CDT 08/02/2022 Narrative [facility] - 08/03/2022 8:10 AM CDT Performed at: 01 - [facility] [address] [id number] Retail Performance Coach: Abundio Serrano PhD, Phone: [phone] Sourav Owens MD LABORATORY Final Resul t [facility] [address] [place] [address] [facility] 1 from Last 3 Months or Most Recently Relevant to Health Maintenance Insurance Advance Directives * Full Code (Latest Code Status on File) Date Activated Date Inactivated Comments 11/17/2021 3:00 PM 2021 10:18 PM Care Teams Mine Development Engineer Relationship Specialty [place] [address] [place] [address] PCP - General FAMILY PRACTICE 03/29/22
--- OUTSIDE RECORDS SUMMARY | 2024-03-30 00:32 | XMS_ITS | Encounter Summary ---
Author Organization [facility] - [facility] Address [address] [place] [address] Care Team Providers Care Manager Home Healthcare Name Role Phone Sourav Owens MD Primary Care Provider [phone]- [phone] Encounter Details Date Type Department Care Team (Late st Contact Info) Description 08/04/2023 [facility] Patient Accounts [address] [place] [address] [facility] Provider Coding review completed Social History Tobacco Use Types Packs/Day Years [...] on filedocumented in this encounter Care Teams Manager Home Healthcare Relationship Specialty [place] [address] [place] [address] PCP - General FAMILY PRACTICE 03/29/22 documented as of this encounter
[2024-03-30 07:28] VITALS: BP 130/86; PULSE 84; RESP 16; TEMP 37.2; O2SAT 99
[2024-03-30 07:40] LABS: Basophils Percent Auto 0.5 % (0.2-1.2); Eosinophils Absolute Auto 0.3 K/mm3 (0-0.3); Eosinophils Percent Auto 4.2 % (0-4.4); Hemoglobin 14.6 g/dL (14.0-18.0); Immature Granulocyte Absolute 0.02 K/mm3 (0.00-0.031); Immature Granulocyte Percent A 0.3 % (0-0.5); Lymphocytes Absolute Auto 1.45 K/mm3 (0.9-3.2); Lymphocytes Percent Auto 19.6 % (18.3-44.2); Mean Corpuscular Hemoglobin 32.7 pg (26-34); Mean Corpuscular Volume 96.2 fl (80-100); Mean Platelet Volume 8.9 fl (7.4-10.4); Monocytes Absolute Auto 0.8 K/mm3 (0.1-0.6); Monocytes Percent Auto 10.4 % (2.6-8.5); Neutrophils Absolute Auto 4.8 K/mm3 (1.3-6.7); Platelet Count Result 319 k/mm3 (150-375); Red Blood Count 4.47 M/mm3 (4.6-6.20); Red Cell Distribution Width 12.1 % (11.5-14.5); White Blood Count 7.4 K/mm3 (4.5-10.0)
[2024-03-30 07:51] LABS: Anion Gap 9 mmol/L (4-12); Blood Urea Nitrogen 9 mg/dL (9-20); Calcium 9.3 mg/dL (8.4-10.2); Carbon Dioxide 24 mmol/L (22-30); Chloride 106 mmol/L (98-107); Estimated CRCL calculation 91 ml/min; Estimated Glomerular Filt Rate > 60; Glucose 99 mg/dL (65-110); Potassium 4.5 mmol/L (3.4-5.0); Sodium 139 mmol/L (137-145)
--- NOTE | 2024-03-30 09:29 | SUR.PREOP ---
patient and declined the planned PCI procedure due to preference on wanting to go through the radial artery. MD preferred to go through the femoral artery, and the patient decided to not go though with the procedure and left to go home. This RN recommended the patient to follow up with his past due accounts clerk.
--- NOTE | 2024-03-30 09:40 | P.PNCROSS_ITS ---
Event Note Event Note Event Note: Patient presented for outpatient PCI today. Plan was to IFR the LAD, +/- PCI of the LAD, balloon angioplasty the diagonal, possible bifurcation PCI if needed. Plan was to do femoral access in case this ended up being a bifurcation PCI. Patient and his were adamant that only radial access be done, refused to have groins shaved and prepped. I discussed with them that although I did his STEMI PCI via radial access, there was no guarantee that radial access would be successful this time around, and given the possibility of bifurcation PCI, femoral access would be better in terms of support. I discussed with both patient and that the groin has to be shaved and prepped even for radial access cases in case femoral backup is needed, especially if there are complications from radial access. Patient and did not want femoral access at all because he reports a history of peripheral arterial disease and is concerned about risks of complications. I offered patient and that our group could do his PCI at [facility], since we do not have surgical backup at [place], however, they stated they do not want to go to any hospital on the [place] side. They stated that they only wanted the procedure done at [facility] and only via radial access and not even have the groins shaved and prepped. I informed them that not having the groins prepped and shaved is not an option as we would need to be able to access femoral as backup. Patient and his decided to cancel the procedure and states they will proceed with medical management only for now. Patient and report myalgias with statin use. They do not want to consider Repatha at this time.
== END ==
PROVIDERS: PCP Family Medicine; Visit Provider Internal Medicine
PROC: 4A023N7 Measurement of Cardiac Sampling and Pressure, Left Heart, Percutaneous Approach (ICD-10-PCS; CPT 93452; principal; 2024-03-30 08:30)
DX: I21.21 ST elevation (STEMI) myocardial infarction involving left circumflex coronary artery (principal); I25.10 Atherosclerotic heart disease of native coronary artery without angina pectoris; I10 Essential (primary) hypertension; F41.9 Anxiety disorder, unspecified; Z53.8 Procedure and treatment not carried out for other reasons; Z79.82 Long term (current) use of aspirin; Z79.02 Long term (current) use of antithrombotics/antiplatelets; Z98.890 Other specified postprocedural states; Z95.5 Presence of coronary angioplasty implant and graft; Z87.891 Personal history of nicotine dependence; Z82.49 Family history of ischemic heart disease and other diseases of the circulatory system
CPT/HCPCS: 36415; 80048; 85025; 99211; G0463; J0583; J1644; J2003; J2305; J7040

== ENCOUNTER 2024-10-13 15:50 | Outpatient (CLI) | payer OTHER, SELFPAY ==
--- NOTE | ~2024-10-13 | CT_ITS ---
Exam: CT chest without contrast Clinical History: [Lung nodule ] Comparison: [ Chest CT 03/31/2013] Technique: Multiple axial CT images of the chest without with IV contrast. Sagittal and coronal reformatted images were obtained. FINDINGS: Lungs and pleura: [ No pneumothorax. No pleural effusion. No focal pulmonary consolidation. Mild biapical scarring. Stable 4 mm pulmonary density in the right lung apex. Moderate centrilobular emphysema. Stable 3 mm pulmonary nodule in the right upper lobe. No pulmonary mass.] Mediastinum and pulmonary linda: Several nonenlarged and borderline enlarged mediastinal and hilar lymph nodes similar to the study from 2023 Axillary/intramammary and supraclavicular: [ No mass or adenopathy.] Heart and great vessels: [ Normal heart size.[ [ No pericardial effusion.] [ No aneurysm.] Chest Wall: [ Unremarkable.] Upper Abdomen: [ No significant findings.] Osseous structures: [ No acute fracture or destructive lesion.] [ Multilevel degenerative change in the visualized spine.] Additional findings: [ None of significance.] IMPRESSION: 1. There are two stable less than 4 mm pulmonary nodules in the right lung. A follow-up chest CT in 6 months is recommended. 2. Moderate centrilobular emphysema. 3. Several nonenlarged and borderline enlarged mediastinal and hilar lymph nodes similar to the study from 2023. Attention on follow-up imaging. Reviewed, dictated and finalized at location Q. IMPRESSION: 1. There are two stable less than 4 mm pulmonary nodules in the right lung. A f ollow-up chest CT in 6 months is recommended. 2. Moderate centrilobular emphysema. 3. Several nonenlarged and borderline enlarged mediastinal and hilar lymph node s similar to the study from 2023. Attention on follow-up imaging.
== END 2024-10-13 15:51 | disposition home or self-care (01) ==
LOC: MICIMG 15:51
PROVIDERS: PCP Family Medicine; Visit Provider Family Medicine
DX: R91.1 Solitary pulmonary nodule (principal)
CPT/HCPCS: 71250